=== PATIENT | male | born 1945 | race Caucasian/White ===

== ENCOUNTER 2017-02-09 17:26 | Observation (INO) | payer MEDICARE, BC ==
[2017-02-09 18:13] LABS: Bilirubin Negative (Negative); Blood, Urine Negative (Negative); Glucose, Urine (Dipstick) Negative (Negative); Ketone, Urine Negative (Negative); Nitrite Negative (Negative); Protein, Urine (Dipstick) Negative (Neg-Trace); Urobilinogen 0.2 mg/dL (0.2-1.0)
[2017-02-09 18:35] LABS: #Lymphocytes 1.4 thou/uL (1.20-3.40); #Monocytes 1.1 thou/uL (0.11-0.59); #Neutrophils 7.1 thou/uL (1.40-6.50); %Basophils 0.1 % (0.0-1.0); %Eosinophils 0.3 % (0.0-10.0); %Lymphocytes 14.3 % (21.0-51.0); %Monocytes 11.4 % (0.0-10.0); Hematocrit 41.7 % (42.0-52.0); Mean Platelet Volume 7.9 fL (7.4-10.4); Red Blood Cell (RBC) Count 4.65 mill/uL (4.70-6.10); White Blood Cell (WBC) Count 9.7 thou/uL (4.8-10.8)
[2017-02-09 18:57] LABS: ALT (SGPT) 13 U/L (8-55); AST (SGOT) 20 U/L (5-34); Alkaline Phosphatase 91 U/L (40-150); Anion Gap 17 mmol/L (10-20); BUN (Urea Nitrogen) 19 mg/dL (8.4-25.7); Bilirubin, Total 1.1 mg/dL (0.2-1.2); CK (CPK) 51 U/L (30-200); Calc. Creatinine Clearance 0 mL/min (70-130); Calcium 10.3 mg/dL (7.8-10.44); Carbon Dioxide 28 mmol/L (23-31); Chloride 95 mmol/L (98-107); Estimated GFR-MDRD 48; Globulin 3.1 g/dL (2.4-3.5); Protein, Total 7.2 g/dL (5.8-8.1)
[2017-02-09 19:01] LABS: Troponin I Less than 0.010 ng/mL (< 0.028)
--- NOTE | 2017-02-09 19:52 | RAD ---
UPRIGHT PORTABLE CHEST ONE VIEW: 02/09/17 HISTORY: 71-year-old male with history of injury following a fall. COMPARISON: 03/27/14. FINDINGS: Postop midline sternotomy. Monitor leads overlie the chest. Heart size is within normal limits. No c onfluent pneumonia, overt edema or pleural effusion. IMPRESSION: Stable appearing chest. No pneumothorax, pleural effusion or other significant acute process. POS: [facility]
--- NOTE | 2017-02-09 20:00 | CT ---
BRAIN CT WITHOUT IV CONTRAST: 02/09/17 HISTORY: 71-year-old male with altered mental status following a fall. Atrophy and chronic white matter ischemic change. No focal mass or midline shift. No intra or extra-a xial hemorrhage. IMPRESSION: Marked atrophy and chronic white matter ischemic change without mass, bleed, or other acute process. POS: [facility]
[2017-02-09] MEDS ORDERED: Ondansetron HCl/PF 4 MG/2 ML Vial IVP PRN (21:51)
[2017-02-09] MEDS ORDERED: Ondansetron ODT 4 MG TAB SL PRN (21:51)
[2017-02-09 22:37] VITALS: BMI 32.8
[2017-02-10] MEDS ORDERED: Dextrose 5% in Water 1,000 ML IV PRN (00:13)
[2017-02-10] MEDS ORDERED: Ondansetron HCl/PF 4 MG/2 ML Vial IVP PRN ×2 (00:13)
[2017-02-10] MEDS ORDERED: HumaLOG 300 UNITS/3 ML VIAL SC PRN ×2 (00:13)
[2017-02-10] MEDS ORDERED: Milk Of Magnesia 30 ML UDCUP PO PRN (00:13)
[2017-02-10] MEDS ORDERED: hydrALAZINE 20 MG/ML VIAL SLOW IVP PRN (00:13)
[2017-02-10] MEDS ORDERED: Dextrose 50% Abboject 50 ML SYRINGE SLOW IVP PRN (00:13)
[2017-02-10] MEDS ORDERED: Acetaminophen 325 MG TAB PO PRN (00:13)
[2017-02-10] MEDS ORDERED: Ondansetron ODT 4 MG TAB PO PRN ×2 (00:13)
[2017-02-10] MEDS ORDERED: Aspirin 325 mg Enteric Coated Tablet PO SCH ×2 (01:00→09:00)
--- NOTE | 2017-02-10 04:34 | HP ---
PRIMARY CARE PHYSICIAN: Dr. Almanza. CHIEF COMPLAINT: Altered mental status. HISTORY OF PRESENT ILLNESS: The history of present illness is taken primarily from the patient's wif e who is at the bedside as the patient only remembers part of what had happened earlier, but frank g to Mr. Platt's , he had gone into town and then came back from town and says that she noticed that he parked his car in a strange location and she says she heard the car door shut and then she h eard him call for help and apparently he had tripped. He says that he tripped over on a rock and fel l to the ground. She says that he was unable to get up initially, and when she went to check on him, he was saying stuff that did not make sense. She asked him where he was and what he was doing and aguila slater told that he had stuffed to deliver to their daughter which was not true. He was also saying other things that just did not make sense. She called an ambulance and by the time the ambulance arrived, he was better oriented. He knew the year, the date, etc., but then when he got to the ER, he seemed a little bit confused again. He also says that his legs were weak, but otherwise no other complaint s. The patient's said he had TIA years ago, but the symptoms were different, but she cannot rem ember exactly how those symptoms where at that time. He denies any other complaints, no headaches, n o dizziness, no feeling lightheaded. He says that he accidentally fell, he did not pass out or loss consciousness. There was no fever, no chills, etc., no chest pain or shortness of breath and right n ow, he feels about back to his baseline. It is also noted that he does have an extensive heart histo ry and vascular history. REVIEW OF SYSTEMS: Constitutional: No fevers, chills, no night sweats, no weight loss. HEENT: No headaches, no dizziness, no visual changes, no sore throat, rhinorrhea, neck pain, no adenopathy. PULMONARY: No hemoptysis, no cough, no wheezing. CARDIOVASCULAR: No chest pain, no shortness of breath, no PND, no orthopnea. GASTROINTESTINAL: No abdominal pain, no nausea, no vomiting, no change in bowels. GENITOURINARY: No urinary frequency, no hematuria, no hesitancy. NEUROLOGIC: No focal weakness, numbness, no seizures. PSYCHIATRIC: No symptoms of anxiety or depression. SKIN AND INTEGUMENT: No skin changes. No rash. NEUROLOGIC: As the history of present illness. In addition, which was previously mentioned. PAST MEDICAL HISTORY: Significant for coronary artery disease, hypertension, asthma, gout, diabetes mellitus type 2, chronic back pain, and peripheral vascular disease. PAST SURGICAL HISTORY: He recently had a revision of fem-pop bypass, has a history of previous fem-p op bypass, coronary artery bypass grafting, cholecystectomy, bilateral inguinal hernia repair, back s urgery x3, right knee surgery, and tonsillectomy. SOCIAL HISTORY: He is . He is a non-smoker, nondrinker. He wishes to be a FULL CODE. ALLERGIES: PENICILLIN and KEFLEX. FAMILY HISTORY: Significant for hypertension in his mother. CURRENT MEDICATIONS: Include Flomax 0.4 mg daily, simvastatin 20 mg daily, multivitamin once a day, metformin 1000 mg twice a day, Advil liquid gel p.r.n., DiaBeta 10 mg twice daily, gabapentin 600 mg twice a day, furosemide 80 mg daily, iron sulfate 325 mg twice a day, docusate 100 mg twice a day, Pl avix 75 mg daily, Zyrtec 10 mg daily, atenolol 25 mg twice a day, aspirin 81 mg daily, allopurinol 10 0 mg daily. PHYSICAL EXAMINATION: GENERAL: He is alert and oriented. He appears to be in no acute distress. VITAL SIGNS: Blood pressure was 122/76, heart rate 73, respiratory rate of 16, temperature is 98.3. HEENT: His pupils are equal, round, and reactive. Extraocular muscles are intact. Sclerae are anic teric. Throat, no erythema, no exudates. NECK: No adenopathy, no bruits. LUNGS: Clear. No wheezing, no rales. CARDIOVASCULAR: He has a normal S1 and S2. I did not appreciate an S3 or S4. No murmurs, clicks, o r rubs. ABDOMEN: Soft, nontender, nondistended. Positive for bowel sounds. No rebound or guarding. EXTREMITIES: There is no clubbing, cyanosis, no edema. NEUROLOGICALLY: His cranial nerves II through XII are grossly intact. Muscle strength 5/5 in both h is upper and lower extremities and essentially nonfocal. LABORATORY RESULTS: White blood cell count 9.7, hemoglobin 14.1, hematocrit 41.7, platelet count is 148. Sodium 136, potassium 4.1, chloride is 95, CO2 was 28, BUN of 19, creatinine 1.44, glucose is 1 19. Troponin is less than 0.010. Urinalysis is negative. X-RAY FINDINGS: On his EKG, it was sinus rhythm, the rate is 82. He has some Q-waves in V1 through V3, suggesting an old anterior infarct. CT of the brain showed some atrophy and chronic ischemic kevin nges, but no bleed or any acute infarct. ASSESSMENT AND PLAN: 1. This is a pleasant 71-year-old gentleman who presented with an episode of altered mental status, which appears to have resolved. He has a significant history of peripheral vascular disease as well as coronary artery disease which puts him at high risk of cerebrovascular disease as well. I suspect that the symptoms were in fact a transient ischemic attack. He will be placed in observation. We w ill get carotid Dopplers, echo, and an MRI. We will also monitor her on telemetry for signs of atria l fibrillation. He is on aspirin and as well as Plavix already. We can give him a dose of full stre ngth aspirin for tomorrow and then consider reducing the dose back to 81 mg following that. 2. For diabetes mellitus, we will hold his metformin and continue glyburide and place him on a slidi ng scale insulin. 3. Hypertension. Continue his usual medications for hypertension as well as a p.r.n. medication. 4. He will be placed on deep venous thrombosis and gastrointestinal prophylaxis as per and further r ecommendations will be based on the results of his tests.
[2017-02-10 04:58] LABS: Anion Gap 13 mmol/L (10-20); BUN (Urea Nitrogen) 19 mg/dL (8.4-25.7); Calc. Creatinine Clearance 68 mL/min (70-130); Calcium 9.9 mg/dL (7.8-10.44); Carbon Dioxide 28 mmol/L (23-31); Chloride 97 mmol/L (98-107); Cholesterol 111 mg/dl (< 200 Desired); Estimated GFR-MDRD 54; LDL Cholesterol, Calculated 42 mg/dL
[2017-02-10 05:04] LABS: #Eosinphils 0.1 thou/uL (0.0-0.7); #Lymphocytes 1.9 thou/uL (1.20-3.40); #Monocytes 1.2 thou/uL (0.11-0.59); #Neutrophils 5.3 thou/uL (1.40-6.50); %Basophils 0.3 % (0.0-1.0); %Eosinophils 0.7 % (0.0-10.0); %Lymphocytes 22.1 % (21.0-51.0); %Monocytes 14.5 % (0.0-10.0); Hematocrit 39.4 % (42.0-52.0); Mean Platelet Volume 8.3 fL (7.4-10.4); White Blood Cell (WBC) Count 8.5 thou/uL (4.8-10.8)
[2017-02-10] MEDS: glyBURIDE 5 MG TAB PO SCH ×2 (08:17→17:09)
[2017-02-10] MEDS: Ferrous Sulfate 325 MG TAB PO SCH ×2 (08:17→17:09)
[2017-02-10] MEDS ORDERED: Loratadine 10 MG TAB PO SCH (09:00)
[2017-02-10] MEDS ORDERED: Gabapentin 300 MG CAP PO SCH (09:00)
[2017-02-10] MEDS ORDERED: Famotidine 20 MG TAB PO SCH (09:00)
[2017-02-10] MEDS ORDERED: Multivit, Therapeutic 1 TAB PO SCH (09:00)
[2017-02-10] MEDS ORDERED: Docusate 100 MG CAP PO SCH (09:00)
[2017-02-10] MEDS ORDERED: Clopidogrel Bisulfate 75 MG TAB PO SCH (09:00)
[2017-02-10] MEDS ORDERED: Tamsulosin HCl 0.4 MG CAP PO SCH (09:00)
[2017-02-10] MEDS ORDERED: Atenolol 25 MG TAB PO SCH (09:00)
[2017-02-10] MEDS ORDERED: Allopurinol 100 MG TAB PO SCH (09:00)
[2017-02-10] MEDS ORDERED: Enoxaparin Sodium 30 MG/0.3 ML SYRINGE SC SCH (09:00)
--- NOTE | 2017-02-10 12:40 | PDOC.PN ---
- Subjective Encounter Start Date: 02/10/17 Encounter Start Time: 07:20 Pt sen for followup re: acute encephalopathy. Denies chest pain, shortness of breath, fevers or chills. - Objective Resuscitation Status: Resuscitation Status FULL:Full Resuscitation MAR Reviewed: Yes Vital Signs & Weight: Vital Signs (12 hours) Temp Pulse Resp BP Pulse Ox 02/10/17 12:00 98.1 F 75 20 140/82 99 02/10/17 08:15 97.9 F 71 20 02/10/17 08:00 97.9 F 71 20 142/79 H 96 02/10/17 04:17 97.9 F 66 18 147/81 H 96 Weight Weight 209 lb 6.4 oz I&O: 02/09/17 02/10/17 02/11/17 06:59 06:59 06:59 Intake Total 240 Output Total 475 Balance -235 Result Diagrams: 02/10/17 04:05 02/10/17 04:05 Additional Labs: Accuchecks 02/10/17 02/10/17 10:51 05:38 POC Glucose 229 H 130 H EKG Reviewed by me: Yes (Tele: NSR) Phys Exam - Physical Examination Constitutional: NAD HEENT: moist MMs Neck: supple Respiratory: clear to auscultation bilateral Cardiovascular: RRR Gastrointestinal: soft Musculoskeletal: pulses present Neurological: non-focal, moves all 4 limbs Psychiatric: normal affect, A&O x 3 Skin: no rash Dx/Plan (1) Acute encephalopathy Code(s): G93.40 - ENCEPHALOPATHY, UNSPECIFIED Status: Acute (2) DM2 (diabetes mellitus, type 2) Status: Chronic (3) HTN (hypertension) Code(s): I10 - ESSENTIAL (PRIMARY) HYPERTENSION Status: Chronic (4) PVD (peripheral vascular disease) Code(s): I73.9 - PERIPHERAL VASCULAR DISEASE, UNSPECIFIED Status: Chronic - Plan PT/OT, out of bed/ambulate * . Acute encephalopathy improved. Continue accuchecks, insulin sliding scale. Monitor vital signs, titrate antihypertensives as needed. Review of Systems - Review of Systems Respiratory: negative: Cough, Dry, Shortness of Breath, Hemoptysis, SOB with Excertion, Pleuritic Pain, Sputum, Wheezing Cardiovascular: negative: chest pain, palpitations, orthopnea, paroxysmal nocturnal dyspnea, edema, light headedness Neurological: negative: Weakness, Numbness, Incoordination, Change in Speech, Confusion, Seizures - Medications/Allergies Allergies/Adverse Reactions: Allergies Allergy/AdvReac Type Severity Reaction Status Date / Time adhesive Allergy BLISTERS Verified 05/19/16 12:01 cephalexin monohydrate Allergy RASH,FLUSHI Verified 05/19/16 12:01 [From Keflex] NG Penicillins Allergy Nausea Verified 05/19/16 12:01 hydrocodone AdvReac Nausea Verified 05/19/16 12:01 Medications: Current Medications Acetaminophen (Tylenol) 650 mg PO Q4H PRN PRN Reason: Headache/Fever or Pain Allopurinol (Zyloprim) 100 mg PO DAILY [facility] Last Admin: 02/10/17 08:17 Dose: 100 mg Aspirin (Ecotrin) 325 mg PO DAILY [facility] Last Admin: 02/10/17 08:17 Dose: 325 mg Atenolol (Tenormin) 25 mg PO BID [facility] Last Admin: 02/10/17 08:18 Dose: 25 mg Atorvastatin Calcium (Lipitor) 20 mg PO [facility] Clopidogrel Bisulfate (Plavix) 75 mg PO DAILY [facility] Last Admin: 02/10/17 08:18 Dose: 75 mg Dextrose/Water (Dextrose 50%) 25 gm SLOW IVP PRN PRN PRN Reason: Hypoglycemia Docusate Sodium (Colace) 100 mg PO BID [facility] Last Admin: 02/10/17 08:18 Dose: 100 mg Enoxaparin Sodium (Lovenox) 30 mg SC 0900 [facility] Last Admin: 02/10/17 08:20 Dose: 30 mg Famotidine (Pepcid) 20 mg PO DAILY [facility] Last Admin: 02/10/17 08:19 Dose: 20 mg [facility] Admin: 02/10/17 08:17 Dose: 325 mg Gabapentin (Neurontin) 600 mg PO BID [facility] Last Admin: 02/10/17 08:19 Dose: 600 mg Glucagon (Glucagon) 1 mg IM PRN PRN PRN Reason: Hypoglycemia [facility]ab[facility]) [facility] Last Admin: 02/10/17 08:17 Dose: 10 mg Hydralazine HCl (Apresoline) 10 mg SLOW IVP Q4H PRN PRN Reason: BP > 220/110 Dextrose/Water (D5w) 1,000 mls @ 0 mls/hr IV .Q0M PRN; As Directed PRN Reason: Hypoglycemia Insulin Human Lispro (Humalog) 0 units SC .MILD SLIDING SCALE PRN PRN Reason: Mild Correctional Scale Insulin Human Lispro (Humalog) 0 units SC .BEDTIME SLIDING SC PRN PRN Reason: Bedtime Correctional Scale Loratadine (Claritin) 10 mg PO DAILY [facility] Last Admin: 02/10/17 08:19 Dose: 10 mg Magnesium Hydroxide (Milk Of Magnesium) 30 ml PO DAILYPRN PRN PRN Reason: Constipation Multivitamins (Theragran) 1 tab PO DAILY [facility] Last Admin: 02/10/17 08:19 Dose: 1 tab Ondansetron HCl (Zofran Odt) 4 mg PO Q6H PRN PRN Reason: Nausea/Vomiting Ondansetron HCl (Zofran) 4 mg IVP Q6H PRN PRN Reason: Nausea/Vomiting Tamsulosin HCl (Flomax) 0.4 mg PO DAILY [facility] Last Admin: 02/10/17 08:19 Dose: 0.4 mg
--- NOTE | 2017-02-10 13:22 | MRI ---
MRI BRAIN WITHOUT CONTRAST: Date: 02/10/17 HISTORY: TIA versus a stroke. COMPARISON: CT brain from prior day. FINDINGS: On the diffusion-weighted imaging sequence, there are no areas of diffusion restriction to suggest ac [place] infarction. This is confirmed on the ADC map. On the susceptibility weighted imaging sequence, there are no abnormal areas of hemorrhage. There is moderate to severe microvascular ischemic changes of the subcortical and deep white matter. No midline shift. No mass effect. Mild atrophy. Flow-voids are maintained at the [place] of [place]. IMPRESSION: 1. No acute infarction or hemorrhage. 2. Extensive microvascular ischemic changes. POS: [facility]
--- NOTE | 2017-02-10 13:42 | ULT ---
ULTRASOUND CAROTID DOPPLER: Date: 02/10/17 HISTORY: TIA. COMPARISON: None. TECHNIQUE: Real-time Julien scale, color Doppler, and spectral analysis of the extracranial carotid arteries was p erformed with the linear transducer. FINDINGS: Moderate atherosclerotic plaque of both common carotid arteries, as well as the carotid bulbs and pro ximal internal carotid arteries. No elevated peak systolic velocities of the internal carotid arterie s to suggest a hemodynamically significant stenosis. Antegrade flow within both vertebral arteries. IMPRESSION: 1. No hemodynamically significant stenosis within the internal carotid arteries. 2. Extensive atherosclerotic plaque. POS: [facility]
[2017-02-10 16:06] VITALS: BP 144/92; TEMP 97.4
[2017-02-10] MEDS ORDERED: Potassium Chloride 20 MEQ TAB PO SCH (17:00)
[2017-02-10] MEDS ORDERED: Atorvastatin Calcium 20 MG TAB PO SCH (21:00)
--- NOTE | 2017-02-10 23:10 | DIS ---
DATE OF ADMISSION: 02/09/2017 DATE OF DISCHARGE: 02/10/2017 PRIMARY CARE PHYSICIAN: Holland Almanza M.D. DISCHARGE DIAGNOSIS: Acute encephalopathy, resolved. CONDITION OF PATIENT AT THE TIME OF DISCHARGE: Stable. I assessed Mr. Platt on the day of discharge. Please refer to my daily hospitalist's progress note for further information. DISCHARGE MEDICATIONS: No changes were made to his preadmission home medications as dictated on hist ory and physical note from 02/09/2017. In particular, he was advised to continue aspirin, Plavix, an d simvastatin. INVESTIGATIONS DURING THIS HOSPITALIZATION: 1. CT scan of the brain, noncontrast on 02/09/2017, which showed marked atrophy and chronic white ma tter ischemic change without mass, bleed or other acute process. 2. A 2D echocardiogram: Unable to obtain ejection fraction due to poor images. He had moderately d ilated left atrium, moderately increased left ventricular size, impaired relaxation compatible with d iastolic dysfunction and mild tricuspid regurgitation. The radiologist recommends a repeat exam. 3. MRI of the brain on 02/10/2017, which did not reveal any acute infarction or hemorrhage. The pat ient had extensive microvascular ischemic changes. 4. Carotid Dopplers on 02/10/2017, which showed extensive atherosclerotic plaque, no hemodynamically significant stenosis within the internal carotid arteries. LABORATORY INVESTIGATIONS: On the day of discharge, Mr. Platt has a white count of 8500, hemoglobi n 13.3, platelet count 140,000. Sodium 135, potassium 3.4, which is being replaced, creatinine 1.30 and blood urea nitrogen 19. During this hospitalization, he had fasting lipid profile showing trigly cerides 148, cholesterol 111, LDL cholesterol 42, and HDL cholesterol 39. HOSPITAL COURSE: Mr. Platt is a pleasant 71-year-old gentleman who was admitted to [facility] on 02/09/2017 for an episode of acute encephalopathy. He was also found to have a cute renal failure, with a creatinine of 1.44. He improved during the hospitalization. He did not h ave further episodes of confusion. He had investigations as described above, which did not reveal an y stroke. He is advised to resume his home medications and to follow up with his primary care provid er in 3 to 5 days. He also had urinalysis during this hospitalization, which was normal. Many thanks for allowing me to participate in your patient's care. Please feel free to contact me wi th any questions or concerns. DISCHARGE DESTINATION: Home.
== END 2017-02-10 17:35 | disposition home or self-care (01) ==
LOC: ERS 17:26 → 2SE 20:14
PROVIDERS: ADMIT Internal Medicine Infectious Disease; ATTEND Internal Medicine Infectious Disease
DX: G93.40 Encephalopathy, unspecified (principal); I10 Essential (primary) hypertension; I25.10 Atherosclerotic heart disease of native coronary artery without angina pectoris; J45.909 Unspecified asthma, uncomplicated; E11.51 Type 2 diabetes mellitus with diabetic peripheral angiopathy without gangrene; Z88.1 Allergy status to other antibiotic agents; Z88.0 Allergy status to penicillin; Z88.5 Allergy status to narcotic agent; Z91.048 Other nonmedicinal substance allergy status; Z79.84 Long term (current) use of oral hypoglycemic drugs; Z79.82 Long term (current) use of aspirin; Z79.899 Other long term (current) drug therapy; Z90.49 Acquired absence of other specified parts of digestive tract; Z95.1 Presence of aortocoronary bypass graft; Z98.890 Other specified postprocedural states; Z82.49 Family history of ischemic heart disease and other diseases of the circulatory system
CPT/HCPCS: 70450; 70551; 71010; 80048; 80053; 80061; 81003; 82550; 82553; 82962; 84484; 85025 ×2; 87804 ×2; 93005; 93306; 93880; 96372; 97139 ×2; 97535; 99285; G0378; G8978; G8979; G8980; G8987; G8988; 36415; 36416; J1650

== ENCOUNTER 2017-11-22 08:51 | Outpatient (CLI) | payer MEDICARE, BC ==
[2017-11-22 10:27] LABS: Hemoglobin 11.8 g/dL (14.0-18.0); Mean Corpuscular HGB CONC 32.4 g/dL (32.0-36.0); Mean Corpuscular Hemoglobin 28.1 pg (27.0-31.0); Mean Corpuscular Volume 86.5 fL (78.0-98.0); Mean Platelet Volume 7.2 fL (7.4-10.4); Platelet Count 210 thou/uL (130-400); RBC Distribution Width 16.1 % (11.5-14.5); White Blood Cell (WBC) Count 7.8 thou/uL (4.8-10.8)
[2017-11-22 10:50] LABS: Anion Gap 12 mmol/L (10-20); BUN (Urea Nitrogen) 18 mg/dL (8.4-25.7); Calc. Creatinine Clearance 0 mL/min (70-130); Calcium 9.8 mg/dL (7.8-10.44); Carbon Dioxide 22 mmol/L (23-31); Chloride 104 mmol/L (98-107); Estimated GFR-MDRD 50; Glucose 292 mg/dL (83-110); Potassium 4.2 mmol/L (3.5-5.1); Sodium 134 mmol/L (136-145)
--- NOTE | 2017-11-25 20:47 | EKG ---
Test Reason : Blood Pressure : / mmHG Vent. Rate : 072 BPM Atrial Rate : 072 BPM P-R Int : 180 ms QRS Dur : 098 ms QT Int : 372 ms P-R-T Axes : 078 169 044 degrees QTc Int : 407 ms Normal sinus rhythm Indeterminate axis Anteroseptal infarct (cited on or before 18-MAR-2014) Abnormal ECG When compared with ECG of 09-FEB-2017 18:15, QRS axis Shifted right Confirmed by Pranav CONNORS ([id number]) on 11/25/2017 8:47:42 PM Referred By: DANIELLE Confirmed By:Pranav CONNORS
== END 2017-11-22 08:52 | disposition home or self-care (01) ==
LOC: LABBT 08:51
PROVIDERS: ATTEND Thoracic Surgery (Cardiothoracic Vascular Surgery)
DX: Z01.818 Encounter for other preprocedural examination (principal)
CPT/HCPCS: 80048; 85027; 93005; 93010

== ENCOUNTER → 2017-11-23 | Day surgery (SDC) | payer MEDICARE, BC ==
[2017-11-22 09:10] VITALS: BMI 29.7
[~2017-11-23] MED LIST: Fentanyl 100 MCG/2 ML VIAL ONE; Iopamidol 370 76% 50 ML VIAL FS ONE; Lidocaine 1% (PF) 30 ML VIAL ONE
--- NOTE | 2017-11-23 08:12 | OP ---
DATE OF PROCEDURE: 11/23/2017 SURGEON: Dr. Holland López PREOPERATIVE DIAGNOSIS: Nonhealing wound right foot, peripheral artery disease. PROCEDURE: Aortogram, bilateral lower extremity runoff. CONTRAST: 48 mL. FLUOROSCOPY: 8.9 minutes. PROCEDURE IN DETAIL: After prepping and draping the right groin was accessed with a Contra catheter under ultrasound guidance and then this catheter after placement had a 0.035 wire placed and a 5-Fren ch dilator and sheath. Following this, runoff was performed of the left lower extremity. Following this, a Contra catheter was advanced into the aorta where injections were completed and then a rim ca theter was used to cross the iliac bifurcation with a wire and then a 4-[place] angled taper was advan dereck and runoff of the right leg was obtained. Following this, the sheath was removed. FINDINGS: On the left leg, the patient had a heavily calcified common femoral artery, but that was w idely patent. The profunda was widely patent and off of the profunda vessel the saphenous vein graft came off and was free of disease. At the distal anastomosis there was about a 50% narrowing and the n runoff was primarily via the anterior tibial as well as the posterior tibial and peroneal being pat ent. The aorta and iliac segments were essentially free of significant disease, although there was i ntraluminal calcification in the left external iliac artery. Runoff on the right leg demonstrated at least 75% stenosis of the distal common femoral artery with 90% stenosis at the origin of the superf icial femoral artery and about 50% profunda stenosis. Superficial femoral artery then had a long 75- 80% stenosis and near the adductor canal. The popliteal artery was patent as best could be determine d in AP and lateral projections with the artificial knee. Runoff was primarily through a diseased po sterior tibial with the peroneal being patent and only for a short distance. The posterior tibial wa s patent to the ankle, the anterior tibial did not appreciably visualize.
--- NOTE | 2017-11-23 13:16 | HP ---
HISTORY OF PRESENT ILLNESS: This is a 72-year-old gentleman being electively admitted for surgery on 11/26/2017. He has had multiple peripheral interventions involving his left and right leg. About 1 month ago, he rubbed a sore on the medial aspect of his right first metatarsal head and then develop ed an infection and was treated with antibiotics by Dr. Almanza. The erythema resolved; however, the w ound has failed to heal. He had a previous superficial femoral artery atherectomy and angioplasty ab out 2015 on the right leg and then about one month later, had a right knee replacement. He underwent angiography demonstrating severe right distal common femoral artery stenosis with a 90% stenosis at the origin of the superficial femoral artery and then about a 75% stenosis at the adductor canal. He then had nonvisualization of his anterior tibial and diseased posterior tibial and peroneal arteries . Heavily calcified femoral system. PAST MEDICAL HISTORY: Significant for coronary artery disease, hypertension, arthritis, asthma, gout , diabetes mellitus, and mild carotid artery disease. PAST SURGICAL HISTORY: Tonsillectomy, right knee replacement, back surgery x3, cholecystectomy, bila teral inguinal hernias, coronary artery bypass grafting x4 in 2014, diagnostic angiography in 02/2015 , left fem-pop bypass with saphenous vein in 02/2015, PERFORATOR LOADER in right leg in 04/2015, revision of left f em-pop graft in 07/2015, repeat revision of left fem-pop graft in 05/2016. SOCIAL HISTORY: The patient is a nonsmoker, has not smoked for greater than 10 years. He is . ALLERGIES: PENICILLIN, KEFLEX, HYDROCODONE, which causes vomiting and TRAMADOL which causes him to b e goofy. MEDICATIONS: Include Plavix 75 a day, atenolol 25 b.i.d., metformin 1000 b.i.d., allopurinol 100 mg daily, simvastatin 20 mg daily, Lasix 40 mg tablets 2 tablets daily, gabapentin 600 b.i.d., Flomax 0. 4 a day, glyburide 10 mg b.i.d., aspirin 81 a day, Septra-DS b.i.d. PHYSICAL EXAMINATION: GENERAL: Alert, cooperative gentleman, looking his stated age. VITAL SIGNS: Blood pressure 149/74, height 6 feet, weight 198. NECK: No carotid bruits. CARDIAC: Regular rate and rhythm. No murmurs. LUNGS: Clear to auscultation. EXTREMITIES: Mild peripheral edema, more so in the left lower extremity than the right lower extremi ty. He has palpable femoral pulses bilaterally and a left dorsalis pedis pulse. His right posterior tibial pulse is high pitched and his left dorsalis pedis is at least biphasic. Pressures are greate r than 200. PLAN: At this time is for common femoral endarterectomy extending onto the orifice of the profunda a nd superficial femoral arteries and possible stenting of the distal superficial femoral artery with a 6 x 100 mm stent. Informed consent has been obtained.
== END ==
LOC: SDC 05:55
PROVIDERS: ATTEND Thoracic Surgery (Cardiothoracic Vascular Surgery)
PROC: B41D1ZZ Fluoroscopy of Aorta and Bilateral Lower Extremity Arteries using Low Osmolar Contrast (ICD-10-PCS; principal; 2017-11-23)
DX: E11.51 Type 2 diabetes mellitus with diabetic peripheral angiopathy without gangrene (principal); I70.235 Atherosclerosis of native arteries of right leg with ulceration of other part of foot; E11.621 Type 2 diabetes mellitus with foot ulcer; L97.519 Non-pressure chronic ulcer of other part of right foot with unspecified severity; I10 Essential (primary) hypertension; J45.909 Unspecified asthma, uncomplicated; M19.90 Unspecified osteoarthritis, unspecified site; M10.9 Gout, unspecified; G89.29 Other chronic pain; M54.9 Dorsalgia, unspecified; I25.10 Atherosclerotic heart disease of native coronary artery without angina pectoris; Z87.891 Personal history of nicotine dependence; Z79.02 Long term (current) use of antithrombotics/antiplatelets; Z79.82 Long term (current) use of aspirin; Z79.84 Long term (current) use of oral hypoglycemic drugs; Z79.899 Other long term (current) drug therapy; Z88.0 Allergy status to penicillin; Z88.5 Allergy status to narcotic agent; Z91.048 Other nonmedicinal substance allergy status; Z95.1 Presence of aortocoronary bypass graft; Z95.820 Peripheral vascular angioplasty status with implants and grafts
CPT/HCPCS: 36246; 75630; 75716; 76942; 82962; C1725; C1769; C1887; 36416; J1644; J2001; J3010

== ENCOUNTER 2017-11-26 05:45 | Inpatient (IN) | payer MEDICARE, BC ==
[2017-11-23 15:52] VITALS: BMI 29.7
[2017-11-26] MEDS ORDERED: Levofloxacin 500 mg/D5W 100 ml Premix Bag ONE (06:25)
[2017-11-26] MEDS ORDERED: Clindamycin/D5W 900 mg/50 ml Premix Bag ONE (06:25)
[2017-11-26] MEDS ORDERED: Heparin 5,000 UNITS/ML VIAL ONE ×2 (06:37→09:52)
[2017-11-26] MEDS ORDERED: Protamine Sulfate 50 MG/5 ML VIAL ONE (06:37)
[2017-11-26] MEDS ORDERED: Iothalamate Meglumine 60% 50 ML VIAL FS ONE (06:37)
[2017-11-26] MEDS ORDERED: Fentanyl 100 MCG/2 ML VIAL ONE ×2 (07:02→11:34)
[2017-11-26] MEDS ORDERED: Phenylephrine HCL 10 MG/ML VIAL ONE (07:30)
[2017-11-26] MEDS ORDERED: Promethazine HCl 25 MG/ML VIAL IM PRN (11:26)
[2017-11-26] MEDS ORDERED: Promethazine HCl 25 MG/ML VIAL SLOW IVP PRN (11:26)
[2017-11-26] MEDS ORDERED: Ondansetron HCl/PF 4 MG/2 ML Vial IVP PRN (11:26)
[2017-11-26] MEDS ORDERED: Promethazine HCl 25 MG/ML VIAL ONE (11:55)
[2017-11-26] MEDS ORDERED: Lidocaine 1% PF 5 ML VIAL ONE (12:29)
[2017-11-26] MEDS ORDERED: Ondansetron HCl/PF 4 MG/2 ML Vial ONE (12:29)
[2017-11-26] MEDS ORDERED: ePHEDrine/0.9% NaCl/PF SYRINGE 50 mg/10 ml ONE (12:29)
[2017-11-26] MEDS ORDERED: Heparin 10,000 UNITS/ 10 ML VIAL ONE (12:29)
[2017-11-26] MEDS ORDERED: PROPOFOL 200 MG/20 ML VIAL ONE (12:29)
[2017-11-26] MEDS ORDERED: PHENYLEPHRINE-NS 100 MCG/ML 10 ML SYRINGE ONE (12:29)
[2017-11-26] MEDS ORDERED: Glycopyrrolate 0.2 MG/ML 5 ML SYRINGE ONE (12:29)
--- NOTE | 2017-11-26 12:33 | OP ---
DATE OF PROCEDURE: 11/26/2017 PREOPERATIVE DIAGNOSIS: Nonhealing wound, right foot. PROCEDURE: Extended right common, profunda and superficial femoral endarterectomy with vein patch an gioplasty and angiography of the right lower extremity with SP[employer]ING [employer] SALES MANAGER, right superficial femoral artery wit h 4 mm and then 5 mm balloon. SURGEON: Holland López M.D. ANESTHESIA: General. ESTIMATED BLOOD LOSS: 150 mL. PROCEDURE IN DETAIL: After adequate anesthesia had been obtained, the patient was prepped and draped . Incision was made in the right groin extending from the inguinal ligament down to 3 cm from the or igin of the superficial femoral artery. Following this, the common femoral artery was palpably soft just caudal to the inguinal ligament. Profunda main branch and its bifurcation were dissected out. The patient was given 10,000 units of heparin, clamps were applied and arteriotomy performed through the common femoral artery. There was dense calcification and after incising from the origin of the s uperficial femoral artery to within about 2 cm of the inguinal ligament endarterectomy was begun. Th e densely calcified plaque primarily involved the common femoral artery and the origin of the profund a femoral artery and this was all removed. The superficial femoral artery was essentially occluded w ith only a tiny lumen ultimately found posteriorly. The plaque was removed from the superficial femo ral artery and there was satisfactory tapering proximal to the clamp with anterior plaque in the post erior lumen. A remnant of saphenous vein left from previous coronary bypass surgery was then opened and used as a vein patch. Following completion of this suture line and irrigating the area thoroughl y, flow was restored down the profunda and then superficial femoral artery. Following this, a needle was used to puncture the vein patch and a wire was then passed down through the superficial femoral into the popliteal artery. Angiography was performed demonstrating about an 80% stenosis in the supe rficial femoral artery at about the adductor canal. A 4 x 80 balloon was then inflated and following this, a 5 x 80 balloon was inflated. Repeat angiograms demonstrated improvement to about a 50% sten osis. Due to the rather diffuse nature of his atherosclerosis it was elected not to place a stent at this time. Following this, the sheath was removed and the puncture site secured with a Prolene sutu re. Heparin was partially reversed with protamine and the wound was then closed in layers. A vacuum dressing was then applied on the groin. The patient is to be taken to the recovery room in guarded condition.
[2017-11-26] MEDS ORDERED: Acetaminophen 325 MG TAB PO PRN (13:31)
[2017-11-26] MEDS ORDERED: Dextrose 50% Abboject 50 ML SYRINGE SLOW IVP PRN (13:31)
[2017-11-26] MEDS ORDERED: Dextrose 5% in Water 1,000 ML IV PRN (13:31)
[2017-11-26] MEDS ORDERED: Insulin Regular 300 UNITS/3 ML VIAL SC PRN (13:31)
[2017-11-26] MEDS ORDERED: hydrALAZINE 20 MG/ML VIAL SLOW IVP PRN (13:31)
[2017-11-26] MEDS ORDERED: Sodium Chloride 0.9% 1,000 ML IV SCH (13:31)
[2017-11-26] MEDS: Clindamycin/D5W 900 MG in Premix Bag 1 BAG IVPB SCH ×2 (15:36→20:36)
[2017-11-26] MEDS: Fentanyl 100 MCG/2 ML VIAL SLOW IVP PRN ×3 (15:48→23:44)
[2017-11-27] MEDS: Clindamycin/D5W 900 MG in Premix Bag 1 BAG IVPB SCH ×2 (03:57→10:00)
[2017-11-27] MEDS: Fentanyl 100 MCG/2 ML VIAL SLOW IVP PRN (04:33)
[2017-11-27 05:57] LABS: #Eosinphils 0.1 thou/uL (0.0-0.7); #Lymphocytes 1.2 thou/uL (1.20-3.40); #Monocytes 0.7 thou/uL (0.11-0.59); #Neutrophils 5.3 thou/uL (1.40-6.50); %Basophils 0.2 % (0.0-1.0); %Eosinophils 1.7 % (0.0-10.0); %Lymphocytes 15.9 % (21.0-51.0); %Monocytes 9.5 % (0.0-10.0); %Neutrophils 72.6 % (42.0-75.0); Hemoglobin 10.2 g/dL (14.0-18.0); Mean Corpuscular HGB CONC 33.3 g/dL (32.0-36.0); Mean Corpuscular Hemoglobin 28.8 pg (27.0-31.0); Mean Corpuscular Volume 86.6 fL (78.0-98.0); Mean Platelet Volume 7.7 fL (7.4-10.4); Platelet Count 152 thou/uL (130-400); RBC Distribution Width 16.5 % (11.5-14.5); Red Blood Cell (RBC) Count 3.54 mill/uL (4.70-6.10); White Blood Cell (WBC) Count 7.3 thou/uL (4.8-10.8)
[2017-11-27 06:13] LABS: Anion Gap 11 mmol/L (10-20); BUN (Urea Nitrogen) 9 mg/dL (8.4-25.7); Calc. Creatinine Clearance 94 mL/min (70-130); Calcium 8.9 mg/dL (7.8-10.44); Carbon Dioxide 22 mmol/L (23-31); Chloride 107 mmol/L (98-107); Estimated GFR-MDRD 86; Glucose 140 mg/dL (83-110); Potassium 4.1 mmol/L (3.5-5.1); Sodium 136 mmol/L (136-145)
[2017-11-27] MEDS ORDERED: Promethazine HCl 25 MG/ML VIAL SLOW IVP PRN (06:34)
[2017-11-27] MEDS ORDERED: Furosemide 20 MG TAB PO SCH (09:00)
[2017-11-27] MEDS: metFORMIN 500 MG TAB PO SCH ×2 (09:52→16:30)
[2017-11-27] MEDS: Clopidogrel Bisulfate 75 MG TAB PO SCH (09:52)
[2017-11-27] MEDS: Tamsulosin HCl 0.4 MG CAP PO SCH (09:52)
[2017-11-27] MEDS: Gabapentin 300 MG CAP PO SCH ×3 (09:54→21:13)
[2017-11-27] MEDS: glyBURIDE 5 MG TAB PO SCH (09:56)
[2017-11-27] MEDS: Morphine 4 MG/ML VIAL SLOW IVP PRN ×2 (11:30→16:31)
[2017-11-27] MEDS: Acetaminophen/Codeine 30-300mg Tablet PO PRN (14:06)
--- NOTE | 2017-11-27 18:01 | MRI ---
MRI OF RIGHT FOOT PERFORMED WITH AND WITHOUT CONTRAST ENHANCEMENT: Date: 11/27/17 HISTORY: Wound on medial side of right great toe, concern for infection. FINDINGS: There is decreased T1 and increased T2 signal change involving the distal phalanx of the great toe an d the distal half of the proximal phalanx with what appear to be some bony destructive changes or pos sibly a pathologic fracture of the distal aspect of the proximal phalanx. Increased T2 signal change is seen. This is directly adjacent to what appears to be an open wound with a sinus-like tract extend ing from the medial side of the great toe to the level of the interphalangeal joint which has fluid w ithin it. The first metatarsal head is normal in signal change. The second toe is also unremarkable. The remain nito of the metatarsals are normal in appearance. IMPRESSION: Findings compatible with osteomyelitis of the proximal and distal phalanx of the great toe. No involv ement is seen of the first metatarsal. POS: [facility]
[2017-11-28 05:53] LABS: #Eosinphils 0.2 thou/uL (0.0-0.7); #Lymphocytes 1.3 thou/uL (1.20-3.40); #Monocytes 0.9 thou/uL (0.11-0.59); #Neutrophils 5.1 thou/uL (1.40-6.50); %Basophils 0.4 % (0.0-1.0); %Eosinophils 2.3 % (0.0-10.0); %Lymphocytes 17.5 % (21.0-51.0); %Monocytes 11.6 % (0.0-10.0); %Neutrophils 68.2 % (42.0-75.0); Hemoglobin 10.7 g/dL (14.0-18.0); Mean Corpuscular HGB CONC 32.9 g/dL (32.0-36.0); Mean Corpuscular Hemoglobin 28.3 pg (27.0-31.0); Mean Corpuscular Volume 86.1 fL (78.0-98.0); Mean Platelet Volume 7.3 fL (7.4-10.4); Platelet Count 137 thou/uL (130-400); RBC Distribution Width 16.7 % (11.5-14.5); Red Blood Cell (RBC) Count 3.77 mill/uL (4.70-6.10); White Blood Cell (WBC) Count 7.5 thou/uL (4.8-10.8)
[2017-11-28 06:14] LABS: Anion Gap 13 mmol/L (10-20); BUN (Urea Nitrogen) 10 mg/dL (8.4-25.7); Calc. Creatinine Clearance 85 mL/min (70-130); Calcium 9.2 mg/dL (7.8-10.44); Carbon Dioxide 22 mmol/L (23-31); Chloride 104 mmol/L (98-107); Estimated GFR-MDRD 77; Glucose 115 mg/dL (83-110); Potassium 3.8 mmol/L (3.5-5.1); Sodium 135 mmol/L (136-145)
[2017-11-28] MEDS: Tamsulosin HCl 0.4 MG CAP PO SCH (08:48)
[2017-11-28] MEDS: metFORMIN 500 MG TAB PO SCH ×2 (08:48→16:01)
[2017-11-28] MEDS: Clopidogrel Bisulfate 75 MG TAB PO SCH (08:48)
[2017-11-28] MEDS: Gabapentin 300 MG CAP PO SCH ×3 (08:48→20:28)
[2017-11-28] MEDS: glyBURIDE 5 MG TAB PO SCH (08:49)
[2017-11-28] MEDS: Acetaminophen/Codeine 30-300mg Tablet PO PRN ×3 (09:42→23:04)
[2017-11-28] MEDS: Ondansetron HCl/PF 4 MG/2 ML Vial IVP PRN ×2 (09:45→23:10)
--- NOTE | 2017-11-28 18:06 | RAD ---
RIGHT FOOT THREE VIEWS: 11/28/17 HISTORY: 72-year-old male with history of osteomyelitis right great toe with soft tissue swelling and pain. COMPARISON: 11/27/17 MRI exam. There is some type of bandage material which overlies the foot which somewhat obscures underlying bon y detail. There is soft tissue swelling of the great toe with destructive changes of the proximal an d distal phalanges of the great toe with some fragmentation of the distal phalanx as well as evidence for septic arthritis with some destructive changes of the interphalangeal joint of the great toe. Th ere are some scattered bone demineralization and degenerative changes including the first metatarsoph alangeal joint. IMPRESSION: Extensive destructive changes of the proximal and distal phalanges of the great toe and interphalange al joint, evidence for osteomyelitis and septic arthritis. POS: [facility]
--- NOTE | 2017-11-28 18:57 | CON ---
DATE OF CONSULTATION: 11/28/2017 REASON FOR CONSULTATION: Right first toe ulcer/osteomyelitis. HISTORY OF PRESENT ILLNESS: A 72-year-old with history of coronary artery disease, peripheral vascul ar disease, type 2 diabetes, who has had a chronic ulcer in the medial aspect of the distal right lourdes lux skin. This has been associated with intermittent drainage. The patient had prior interventions in the peripheral vasculature on both lower extremities and has been given oral antimicrobial therapy and because of the refractoriness of the process, he underwent repeat evaluation and had another pro cedure done with endarterectomy and SFA balloon angioplasty. An MRI has been completed off the right foot and it showed findings consistent with bony destructive changes or possibly a pathologic fractu re distal aspect of the proximal phalanx. Since there was a sinus tract, likely extending from the m edial side of the great toe to the level of the interphalangeal joint, the concern with infection is a significant. REVIEW OF SYSTEMS: No headaches, visual symptoms, sore throat, odynophagia, dysphagia, no dyspnea or chest pain, no abdominal pain or diarrhea, no genitourinary symptoms. PAST MEDICAL HISTORY: Type 2 diabetes, peripheral vascular disease, coronary artery disease, hyperte nsion, asthma and gout. PAST SURGICAL HISTORY: The revascularization procedures including fem-pop bypass, coronary artery by pass graft, cholecystectomy, inguinal repair and the recent revascularization. SOCIAL HISTORY: , lives in about 15 minutes from here. Never a smoker. ALLERGIES: PENICILLIN, actually not likely a true allergy, mostly during childhood and he does not r emember exactly the type. FAMILY HISTORY: Hypertension. CURRENT MEDICATIONS: Tylenol, DuoNeb, aspirin, Plavix, dextrose, Neurontin, glucagon, DiaBeta, Apres oline, insulin, Glucophage, Zofran, Phenergan, Flomax. PHYSICAL EXAMINATION: VITAL SIGNS: T-max 98.4 and all other vital signs are normal. O2 sat 100% room air. SKIN: Shows the round shaped about 0.8 cm ulcerated area medial aspect of the distal right hallux sk in with base covered by kind of grayish scab. The patient has a negative pressure dressing in the [facility] groin region following the revascularization procedure without any inflammatory changes. Periphe ral IV access. No lymphadenopathy. HEENT: Ocular movements conjugate. Oral cavity normal. NECK: Supple, no jugular vein distention. LUNGS: With symmetric clear breath sounds. HEART: S1, S2, regular rate. No S3 or S4. ABDOMEN: Soft, not distended or tender. No ascites. No bladder distention. EXTREMITIES: Pulses are faintly palpable in popliteal and dorsalis pedis. Cap refill is normal. NEUROLOGIC: Nonfocal. LABORATORY DATA: White cell count 7.3, hemoglobin 10.2, MCV 86, platelets 152 with normal differenti al except for lymphocytopenia. Sodium 135, creatinine 0.96. Reports as noted above. ASSESSMENT: Diabetes mellitus type 2, peripheral vascular disease with recent revascularization afte r multiple previous procedures in the lower extremities and a chronic ulcer with abnormal findings on MRI suggestive of either a fracture or more likely an infected area with osteomyelitis. At this poi nt, we will order plain films to see the integrity of the cortex of the hallux, distal phalanx and li maryse proceed with antimicrobial therapy given via the PICC line with broad spectrum coverage.
[2017-11-29] MEDS: metFORMIN 500 MG TAB PO SCH ×2 (08:21→15:52)
[2017-11-29] MEDS: Clopidogrel Bisulfate 75 MG TAB PO SCH (08:21)
[2017-11-29] MEDS: Tamsulosin HCl 0.4 MG CAP PO SCH (08:21)
[2017-11-29] MEDS: Gabapentin 300 MG CAP PO SCH ×3 (08:21→21:45)
[2017-11-29] MEDS: glyBURIDE 5 MG TAB PO SCH (08:21)
[2017-11-29] MEDS: Ondansetron HCl/PF 4 MG/2 ML Vial IVP PRN ×2 (09:58→15:50)
--- NOTE | 2017-11-29 23:27 | PRG ---
DATE OF SERVICE: 11/29/2017 SUBJECTIVE: No major problems. No respiratory symptoms, abdominal pain, diarrhea, or genitourinary symptoms. Noticed some drainage from the first toe, right side. OBJECTIVE: VITAL SIGNS: Vital signs are not remarkable. LUNGS: Clear. HEART: S1, S2, regular rate. ABDOMEN: Soft, not distended. EXTREMITIES: The right first toe with the ulcerated region and some drainage. LABORATORY DATA: White cell count 7.5, hemoglobin 10.7. Chemistry with a creatinine 0.96. A foot x -ray demonstrated extensive destructive changes and proximal distal phalanges of the great toe interp halangeal joint. ASSESSMENT AND DISCUSSION: Type 2 diabetes with peripheral vascular disease, recent revascularizatio n after multiple previous procedures and now evidence of osteomyelitis of the distal phalanx and dist al interphalangeal joint. The chances that he would be able to retain the distal segment of the toe are very low in view of the extent of destruction of the bone. I would recommend amputation at this point in time. It is felt to be safe from the standpoint of vascular supply. The joint is involved, so I think the patient would be at the proximal phalanx level. Cultures to be submitted so we can d etermine the antimicrobial therapy hopefully via the oral route. The duration of antimicrobial thera py would be longer than usual after amputation because of the vascular issues.
[2017-11-30 00:01] VITALS: BP 132/77; TEMP 97.9
--- NOTE | 2017-11-30 08:20 | DIS ---
HOSPITAL COURSE: The patient was admitted and underwent right common deep and superficial endarterec dragan with vein patch angioplasty and intraoperative CLASSER of the right superficial femoral artery with a 5 x 80 balloon. Postoperatively, he had significant pain in his foot for the first 24 hours, altho ugh his foot was pink and warm with good Doppler signals. He had an MRI and a foot x-ray, both showi ng phalangeal fracture and probable osteomyelitis. He was seen by Dr. Tipton and consideration was gi laura to long-term antibiotics; however, the patient opted for great toe amputation. Due to the surger y schedule it could not be performed this admission and he is being discharged today to resume his [facility] medications and will follow up with [facility] next week for outpatient right great toe amputation. Incis ions in the right groin are doing well and he has no significant edema in his leg.
[2017-11-30] MEDS: glyBURIDE 5 MG TAB PO SCH (11:16)
[2017-11-30] MEDS: metFORMIN 500 MG TAB PO SCH (11:16)
[2017-11-30] MEDS: Tamsulosin HCl 0.4 MG CAP PO SCH (11:17)
[2017-11-30] MEDS: Clopidogrel Bisulfate 75 MG TAB PO SCH (11:17)
[2017-11-30] MEDS: Gabapentin 300 MG CAP PO SCH (11:17)
== END 2017-11-30 09:25 | disposition home or self-care (01) | DRG 253 ==
LOC: SURG A 05:45
PROVIDERS: ADMIT Thoracic Surgery (Cardiothoracic Vascular Surgery); ATTEND Thoracic Surgery (Cardiothoracic Vascular Surgery)
PROC: 04CK0ZZ Extirpation of Matter from Right Femoral Artery, Open Approach (ICD-10-PCS; principal; 2017-11-26)
PROC: 04UK07Z Supplement Right Femoral Artery with Autologous Tissue Substitute, Open Approach (ICD-10-PCS; 2017-11-26)
PROC: 047K3ZZ Dilation of Right Femoral Artery, Percutaneous Approach (ICD-10-PCS; 2017-11-26)
DX: E11.51 Type 2 diabetes mellitus with diabetic peripheral angiopathy without gangrene (principal); M86.9 Osteomyelitis, unspecified; I70.235 Atherosclerosis of native arteries of right leg with ulceration of other part of foot; I25.10 Atherosclerotic heart disease of native coronary artery without angina pectoris; I10 Essential (primary) hypertension; J45.909 Unspecified asthma, uncomplicated; M10.9 Gout, unspecified; E11.69 Type 2 diabetes mellitus with other specified complication
CPT/HCPCS: 36246; 36415; 36416; 36430; 75630; 75716; 76001; 76942; 80048; 85025; 86850; 86900; 86901; 96374; C1725; C1769; C1887; G8978-GP-CL; G8979-GP-CI; J1642; J1644; J1956; J2001; J2270; J2370; J2405; J2550; J2704; J2720; J3010; J3490; Q9961

== ENCOUNTER 2017-12-03 06:45 | Day surgery (SDC) | payer MEDICARE, BC ==
[2017-12-03 07:32] LABS: #Basophils 0.1 thou/uL (0.0-0.2); #Eosinphils 0.5 thou/uL (0.0-0.7); #Lymphocytes 1.8 thou/uL (1.20-3.40); #Monocytes 0.7 thou/uL (0.11-0.59); #Neutrophils 5.2 thou/uL (1.40-6.50); %Basophils 0.7 % (0.0-1.0); %Eosinophils 5.8 % (0.0-10.0); %Lymphocytes 22.1 % (21.0-51.0); %Monocytes 8.5 % (0.0-10.0); %Neutrophils 62.9 % (42.0-75.0); Hemoglobin 12.7 g/dL (14.0-18.0); Mean Corpuscular Hemoglobin 27.6 pg (27.0-31.0); Mean Corpuscular Volume 86.2 fL (78.0-98.0); Mean Platelet Volume 7.1 fL (7.4-10.4); Platelet Count 241 thou/uL (130-400); RBC Distribution Width 16.2 % (11.5-14.5); Red Blood Cell (RBC) Count 4.58 mill/uL (4.70-6.10); White Blood Cell (WBC) Count 8.3 thou/uL (4.8-10.8)
[2017-12-03 07:55] LABS: Anion Gap 14 mmol/L (10-20); BUN (Urea Nitrogen) 23 mg/dL (8.4-25.7); Calc. Creatinine Clearance 0 mL/min (70-130); Calcium 9.8 mg/dL (7.8-10.44); Carbon Dioxide 27 mmol/L (23-31); Chloride 97 mmol/L (98-107); Estimated GFR-MDRD 54; Glucose 181 mg/dL (83-110); Potassium 3.9 mmol/L (3.5-5.1); Sodium 134 mmol/L (136-145)
[2017-12-03] MEDS ORDERED: Levofloxacin 500 mg/D5W 100 ml Premix Bag ONE (07:58)
[2017-12-03] MEDS ORDERED: Bupivacaine 0.25% HCL 30 ML VIAL ONE (08:28)
[2017-12-03] MEDS ORDERED: Ketamine 50 MG/ML VIAL ONE (08:35)
[2017-12-03] MEDS ORDERED: Fentanyl 100 MCG/2 ML VIAL ONE (08:35)
[2017-12-03] MEDS ORDERED: Propofol 500 MG/50 ML VIAL ONE (08:35)
--- NOTE | 2017-12-03 11:27 | OP ---
PREOPERATIVE DIAGNOSIS: Osteomyelitis, right great toe. PROCEDURE: Right great toe amputation. SURGEON: Holland López M.D. ANESTHESIA: DESCRIPTION OF PROCEDURE: After prepping and draping the right foot, the 1 cm ulcer was excise d down to the phalanx. The bone itself was soft and nonviable. At this point, it was elected to rem ove the distal aspect of right great toe with a circumferential incision encompassing the dorsal aspe ct of the great toe including the plantar aspect impact. After removing this, the bone was debrided back to good bone in the proximal phalanx. There was some bleeding and this was handled with coagula tion. The area was irrigated and single nylon sutures used to approximate the lateral aspect of the anterior and posterior flap and to allow packing of the medial aspect of the wound. Dressings were a pplied and the patient has to be taken to the recovery room with outpatient wound care to follow.
[2017-12-03] MEDS ORDERED: Lidocaine 1% PF 5 ML VIAL ONE (17:15)
[2017-12-03] MEDS ORDERED: Ondansetron HCl/PF 4 MG/2 ML Vial ONE (17:15)
[2017-12-03] MEDS ORDERED: Glycopyrrolate 0.2 MG/ML 5 ML SYRINGE ONE (17:15)
[2017-12-03] MEDS ORDERED: PHENYLEPHRINE-NS 100 MCG/ML 10 ML SYRINGE ONE (17:15)
[2017-12-03] MEDS ORDERED: PROPOFOL 200 MG/20 ML VIAL ONE (17:15)
== END 2017-12-03 11:35 | disposition home or self-care (01) ==
LOC: SDC 06:45
PROVIDERS: ATTEND Thoracic Surgery (Cardiothoracic Vascular Surgery)
PROC: 0Y6P0Z0 Detachment at Right 1st Toe, Complete, Open Approach (ICD-10-PCS; principal; 2017-12-03)
DX: E11.69 Type 2 diabetes mellitus with other specified complication (principal); M86.8X7 Other osteomyelitis, ankle and foot; E11.621 Type 2 diabetes mellitus with foot ulcer; L97.519 Non-pressure chronic ulcer of other part of right foot with unspecified severity; I25.10 Atherosclerotic heart disease of native coronary artery without angina pectoris; I10 Essential (primary) hypertension; M19.90 Unspecified osteoarthritis, unspecified site; J45.909 Unspecified asthma, uncomplicated; M10.9 Gout, unspecified; Z87.891 Personal history of nicotine dependence; Z79.02 Long term (current) use of antithrombotics/antiplatelets; Z79.84 Long term (current) use of oral hypoglycemic drugs; Z79.82 Long term (current) use of aspirin; Z79.899 Other long term (current) drug therapy; Z88.0 Allergy status to penicillin; Z88.1 Allergy status to other antibiotic agents; Z88.5 Allergy status to narcotic agent; Z91.048 Other nonmedicinal substance allergy status; Z95.1 Presence of aortocoronary bypass graft; Z96.651 Presence of right artificial knee joint
CPT/HCPCS: 36415; 80048; 85025; J0131; J1956; J2001; J2405; J2704; J3010; S0020

== ENCOUNTER 2017-12-05 12:26 | Outpatient (CLI) | payer MEDICARE, BC ==
[~2017-12-05 12:26] MED LIST changes: -Fentanyl 100 MCG/2 ML VIAL ONE; -Iopamidol 370 76% 50 ML VIAL FS ONE; -Lidocaine 1% (PF) 30 ML VIAL ONE; +Sodium Chloride 0.9% 15 ML NEB ONE
--- NOTE | 2017-12-05 18:35 | HP ---
DATE OF SERVICE: 12/05/2017 REFERRING PHYSICIAN: Dr. Holland López. HISTORY OF PRESENT ILLNESS: Mr. Dewey Platt is a very pleasant 72-year-old gentleman accompanied by his who presents [facility] the [facility] for evaluation of a wound of the right great toe subsequ ent to amputation on 12/03/[address] Holland López. Previously on 11/26/2017, the patient had underg one extended right common profunda and superficial femoral endarterectomy with vein patch angioplasty on 11/26/2017. Subsequent to amputation of the right great toe, the patient was referred to the [facility] for further evaluation and treatment. At the time of surgery, the wound was left open for healing by secondary intention. PAST MEDICAL HISTORY: 1. Hypertension. 2. Chronic back pain. 3. Asthma. 4. Arthritis. 5. Gout. 6. Diabetes mellitus. 7. Peripheral vascular disease. 8. History of transient ischemic attack. 9. Osteoarthritis. 10. Coronary artery disease. PAST SURGICAL HISTORY: 1. Tonsillectomy. 2. Cholecystectomy/bilateral inguinal hernia repairs. 3. Back surgery x3. 4. Right knee surgery. 5. Coronary artery bypass grafting x4. 6. Left femoral to infragenicular popliteal artery bypass with nonreversed saphenous vein in situ. 7. Right total knee arthroplasty. 8. Vein patch angioplasty of distal vein graft and anastomosis. 9. Revision of left distal anastomosis of fem-pop graft. Extended right common, profunda, and super ficial femoral endarterectomy with vein patch angioplasty, 11/26/2017. 10. Right great toe amputation, 12/03/2017. MEDICATIONS: 1. Glyburide. 2. Multivitamin. 3. Metformin. 4. Allopurinol. 5. Lasix. 6. Ibuprofen. 7. Gabapentin. 8. Zocor. ALLERGIES: ADHESIVE, PENICILLIN, KEFLEX, ZYRTEC and HYDROCODONE. SOCIAL HISTORY: Significant for tobacco use in the remote past. The patient denies any current alco hol use. FAMILY HISTORY: Negative for diabetes mellitus or coronary artery disease. PHYSICAL EXAMINATION: VITAL SIGNS: Temperature 97.6, pulse 87, respirations 20, blood pressure 154/86. GENERAL: A 72-year-old gentleman sitting on chair in examination room in no acute distress. HEENT: Normocephalic, atraumatic. NECK: No nuchal rigidity. CHEST: Clear to auscultation. CARDIAC: Regular rate and rhythm. ABDOMEN: Soft. EXTREMITIES: A wound of the right great toe is present which measures approximately 2.1 x 4.0 cm. T he depth of the wound is approximately 2.6 cm. Granulation tissue is present within the wound margin s. No purulent drainage is associated with the wound. Slight erythema of the skin surrounding the w ound is present. No maceration of the skin of the periwound is noted. A dorsalis pedis pulse is eas ivy palpable on the right. No significant edema of the right foot is present on exam today. ASSESSMENT AND PLAN: 1. Wound of right great toe subsequent to right great toe amputation on 12/03/2017. Dressing change s of Silverlon, 4 x 4s, Kerlix, and an Phani bandage will be initiated today. These dressing changes a re to be performed on a daily basis after cleansing and irrigation with the assistance of the patient 's . I will see Mr. Platt again in 1-2 weeks. No antibiotics will be prescribed today based o n the appearance of the wound. The patient and his understand and are in agreement with the pre ceding treatment plan. 2. Hypertension. 3. Chronic back pain. 4. Asthma. 5. Arthritis. 6. Gout. 7. Diabetes mellitus. Accu-Cheks will be obtained at the time of the patient's clinic visits. The patient has been told that for optimal wound healing, his blood glucoses should remain below 150. 8. Peripheral vascular disease. 9. History of transient ischemic attack. 10. Osteoarthritis 11. Coronary artery disease.
== END 2017-12-05 12:27 | disposition home or self-care (01) ==
LOC: WCC 12:26
PROVIDERS: ATTEND Family Medicine
DX: Z47.81 Encounter for orthopedic aftercare following surgical amputation (principal); I10 Essential (primary) hypertension; M54.9 Dorsalgia, unspecified; J45.909 Unspecified asthma, uncomplicated; M19.90 Unspecified osteoarthritis, unspecified site; M10.9 Gout, unspecified; E11.9 Type 2 diabetes mellitus without complications; I73.9 Peripheral vascular disease, unspecified; I25.10 Atherosclerotic heart disease of native coronary artery without angina pectoris; Z89.412 Acquired absence of left great toe; Z86.73 Personal history of transient ischemic attack (TIA), and cerebral infarction without residual deficits
CPT/HCPCS: 82962; A4649; 36416; A4218

== ENCOUNTER 2017-12-12 12:36 | Outpatient (CLI) | payer MEDICARE, BC ==
--- NOTE | 2017-12-12 14:18 | PRG ---
DATE OF SERVICE: 12/12/2017 HISTORY: Mr. Dewey Platt is a very pleasant 72-year-old gentleman accompanied by his who presents to the [facility] for evaluation of a wound of the right great toe subsequent to amputati on on 12/03/[address] Holland López. Previously on 11/26/2017 the patient had undergone extended rig ht common profunda and superficial femoral endarterectomy with vein patch angioplasty on 11/26/2017. Subsequent to amputation of the right great toe the patient was referred to the Wound Center for fur ther evaluation and treatment. At the time of surgery, the wound was left open for healing by second zeferino intention. Since the patient's last visit, Mr. Platt has been receiving dressing changes of Si lverlon, 4 x 4s, Kerlix, and an Phani bandage on a daily basis after cleansing and irrigation with the assistance of his . PHYSICAL EXAMINATION: VITAL SIGNS: Temperature 99.5, pulse 95, respirations 19, blood pressure 138/75. Accu-Chek 138. EXTREMITIES: A wound of the right great toe is present which measures approximately 1.7 x 3.0 cm. T he depth of the wound is approximately 0.8 cm. The depth of the wound at the time of the patient's l ast visit was approximately 2.6 cm. Granulation tissue is present within the wound margins. No puru lent drainage is associated with the wound. No erythema of the skin surrounding the wound is present . No maceration of the skin of the periwound is noted. A dorsalis pedis pulse is easily palpable on the right. No significant edema of the right foot is present on exam today. ASSESSMENT AND PLAN: 1. Wound of right great toe subsequent to right great toe amputation on 12/03/2017. Dressing change s of Silverlon, 4 x 4s, Kerlix, and an Phani bandage will be continued on a daily basis after cleansing and irrigation with the assistance of the patient's . I will see Mr. Platt again in one week. The patient states he has a followup appointment with Dr. López in 2 weeks. 2. Hypertension. 3. Chronic back pain. 4. Asthma. 5. Arthritis. 6. Gout. 7. Diabetes mellitus. The patient's Accu-Chek in clinic today is 138. The patient has been reminde d that for optimal wound healing, his blood glucoses should remain below 150. 8. Peripheral vascular disease. 9. History of transient ischemic attack. 10. Osteoarthritis. 11. Coronary artery disease.
[2017-12-12] MEDS ORDERED: Sodium Chloride 0.9% 15 ML NEB ONE (15:53)
== END 2017-12-12 12:37 | disposition home or self-care (01) ==
LOC: WCC 12:36
PROVIDERS: ATTEND Family Medicine
DX: T81.89XD Other complications of procedures, not elsewhere classified, subsequent encounter (principal); I10 Essential (primary) hypertension; M54.9 Dorsalgia, unspecified; G89.29 Other chronic pain; J45.909 Unspecified asthma, uncomplicated; M19.90 Unspecified osteoarthritis, unspecified site; M10.9 Gout, unspecified; E11.51 Type 2 diabetes mellitus with diabetic peripheral angiopathy without gangrene; I25.10 Atherosclerotic heart disease of native coronary artery without angina pectoris; Z86.73 Personal history of transient ischemic attack (TIA), and cerebral infarction without residual deficits
CPT/HCPCS: 97602; A4218

== ENCOUNTER 2017-12-19 12:46 | Outpatient (CLI) | payer MEDICARE, BC ==
[~2017-12-19 12:46] MED LIST changes: +Lidocaine 2% Jelly 5 ML TUBE ONE
--- NOTE | 2017-12-19 14:20 | PRG ---
DATE OF SERVICE: 12/19/2017 HISTORY: Mr. Dewey Platt is a very pleasant 72-year-old gentleman accompanied by his who pre sents to the Wound Center for evaluation of a wound of the right great toe subsequent to amputation o n 12/03/[address] Holland López. Previously on 11/26/2017, the patient had undergone extended right common profunda and superficial femoral endarterectomy with vein patch angioplasty on 11/26/2017. Russ bsequent to amputation of the right great toe, the patient was referred to the [facility] for critical access hospital evaluation and treatment. At the time of surgery, the wound was left open for healing by secondar y intention. Since the patient's last visit, Mr. Platt has been receiving dressing changes of Silv erlon, 4 x 4s, Kerlix, and an Phani bandage on a daily basis after cleansing and irrigation with the as sistance of his . PHYSICAL EXAMINATION: VITAL SIGNS: Temperature 97.7, pulse 78, respirations 16, blood pressure 117/64. Accu-Chek 145. EXTREMITIES: A wound of the right great toe is present, which measures approximately 1.7 x 1.8 cm. The depth of the wound is approximately 0.9 cm. Granulation tissue is present within the wound jose ns. No purulent drainage is associated with the wound. No erythema of the skin surrounding the woun d is present. No maceration of the skin of the periwound is noted. A dorsalis pedis pulse is easily palpable on the right. No significant edema of the right foot is present on exam today. ASSESSMENT AND PLAN: 1. Wound of right great toe subsequent to right great toe amputation on 12/03/2017. Dressing change s of Silverlon, 4 x 4s, Kerlix, and an Phani bandage will be continued on a daily basis after cleansing and irrigation with the assistance of the patient's . The patient has an appointment with Dr. Todd staples in 1 week. I will see Mr. Platt again as needed after his evaluation by Dr. López. 2. Hypertension. 3. Chronic back pain. 4. Asthma. 5. Arthritis. 6. Gout. 7. Diabetes mellitus. The patient's Accu-Chek in clinic today is 145. The patient has been reminde d that for optimal wound healing, his blood glucoses should remain below 150. 8. Peripheral vascular disease. 9. History of transient ischemic attack. 10. Osteoarthritis. 11. Coronary artery disease.
== END 2017-12-19 12:47 | disposition home or self-care (01) ==
LOC: WCC 12:46
PROVIDERS: ATTEND Family Medicine
DX: T81.89XD Other complications of procedures, not elsewhere classified, subsequent encounter (principal); I10 Essential (primary) hypertension; J45.909 Unspecified asthma, uncomplicated; M19.90 Unspecified osteoarthritis, unspecified site; M54.9 Dorsalgia, unspecified; G89.29 Other chronic pain; I25.10 Atherosclerotic heart disease of native coronary artery without angina pectoris; M10.9 Gout, unspecified; E11.9 Type 2 diabetes mellitus without complications; I73.9 Peripheral vascular disease, unspecified; Z86.73 Personal history of transient ischemic attack (TIA), and cerebral infarction without residual deficits
CPT/HCPCS: 97602; A4218

== ENCOUNTER 2019-08-20 16:37 | Inpatient (IN) | payer MEDICARE, BC ==
[~2019-08-20 16:37] MED LIST changes: +Dexamethasone 20 MG/5 ML VIAL ONE; +Lidocaine 1% PF 5 ML VIAL ONE; -Lidocaine 2% Jelly 5 ML TUBE ONE; +Metoclopramide HCl 10 MG/2 ML VIAL ONE; +Ondansetron PF 4 MG/2 ML Vial ONE; +PROPOFOL 200 MG/20 ML VIAL ONE; -Sodium Chloride 0.9% 15 ML NEB ONE; +Succinylcholine Chloride 20 MG/ML 10 ml SYRINGE FS ONE
[2019-08-20] MEDS ORDERED: Lidocaine 1% w/Epinephrine 1:100K 20 ML VIAL ONE (17:29)
[2019-08-20] MEDS ORDERED: Vancomycin HCl 1.75 GM in Sodium Chloride 0.9% 500 ML IVPB SCH (18:30)
[2019-08-20] MEDS ORDERED: Lidocaine 2% Jelly 5 ML TUBE ONE (18:59)
[2019-08-20] MEDS ORDERED: Fentanyl 100 MCG/2 ML VIAL ONE (18:59)
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
[2019-08-20] MEDS ORDERED: Acetaminophen 325 MG TAB PO PRN (19:16)
[2019-08-20] MEDS ORDERED: Ibuprofen 600 MG TAB PO PRN (19:16)
[2019-08-20] MEDS ORDERED: Ondansetron ODT 4 MG TAB PO PRN (19:16)
[2019-08-20] MEDS ORDERED: Fentanyl 100 MCG/2 ML VIAL SLOW IVP PRN (19:16)
[2019-08-20] MEDS ORDERED: Midazolam HCl 2 mg/2 ml Vial ONE (19:22)
[2019-08-20 19:26] LABS: #Eosinphils 0.1 thou/uL (0.0-0.7); #Monocytes 0.7 thou/uL (0.11-0.59); %Basophils 0.4 % (0.0-1.0); %Eosinophils 1.1 % (0.0-10.0); %Lymphocytes 20.8 % (21.0-51.0); %Monocytes 7.1 % (0.0-10.0); %Neutrophils 70.6 % (42.0-75.0); Hemoglobin 12.5 g/dL (14.0-18.0); Mean Corpuscular HGB CONC 34.3 g/dL (32.0-36.0); Mean Corpuscular Hemoglobin 31.2 pg (27.0-31.0); Mean Corpuscular Volume 90.8 fL (78.0-98.0); Mean Platelet Volume 8.6 fL (7.4-10.4); Platelet Count 165 thou/uL (130-400); RBC Distribution Width 13.6 % (11.5-14.5); White Blood Cell (WBC) Count 9.9 thou/uL (4.8-10.8)
[2019-08-20 19:33] LABS: INR-International Normal Ratio 1.1; PTT 24.2 sec (22.9-36.1); Prothrombin Time 14.2 sec (12.0-14.7)
[2019-08-20] MEDS ORDERED: Famotidine/PF 20 mg/2ml Vial ONE (19:33)
[2019-08-20 19:44] LABS: Anion Gap 14 mmol/L (10-20); BUN (Urea Nitrogen) 18 mg/dL (8.4-25.7); Calc. Creatinine Clearance 0 mL/min (70-130); Carbon Dioxide 24 mmol/L (23-31); Chloride 105 mmol/L (98-107); Estimated GFR-MDRD 52; Glucose 233 mg/dL (83-110); Potassium 4.5 mmol/L (3.5-5.1); Sodium 138 mmol/L (136-145)
[2019-08-20] MEDS ORDERED: Ondansetron HCl/PF 4 MG/2 ML Vial IVP PRN (20:12)
[2019-08-20] MEDS ORDERED: Promethazine HCl 25 MG/ML VIAL IM PRN (20:12)
[2019-08-20] MEDS ORDERED: Promethazine HCl 25 MG/ML VIAL SLOW IVP PRN (20:12)
--- NOTE | 2019-08-20 20:42 | OP ---
DATE OF PROCEDURE: 08/20/2019 PREOPERATIVE DIAGNOSIS: Large left calf hematoma. POSTOPERATIVE DIAGNOSIS: Large left calf hematoma. PROCEDURE PERFORMED: Evacuation of hematoma and closure. ANESTHESIA: General endotracheal. ESTIMATED BLOOD LOSS: Approximately 500 mL of clot was removed, but no further blood loss. DESCRIPTION OF PROCEDURE: After consent was obtained from the patient, he was brought to the operating room and placed in supine position on the operating table. Appropriate central line and monitors were placed and general endotracheal anesthesia was induced. During the transport and prep process, the hematoma split posteriorly. Once he was prepped and draped, the hematoma was evacuated. The hematoma cavity was then copiously irrigated. The skin was thin, but appeared viable. The underlying tissue was into the dermis and appeared to again be viable, and there was no bleeding. The skin was reapproximated with clips loosely. A fluff dressing was then applied after Xeroform gauze had been applied over the wound and the leg was then wrapped with a Kerlix followed by an Phani bandage. My hope is that the skin will act just as a skin graft would and re-adhere to the underlying dermis. If not, he will need resection and split-thickness skin grafting of this area. The area itself measured approximately 20 cm x 10 cm on the posterior calf. Job ID: [id number] [facility]
[2019-08-20] MEDS: Atenolol 25 MG TAB PO SCH (21:46)
[2019-08-20] MEDS: Simvastatin 20 MG TAB PO SCH (21:46)
[2019-08-20] MEDS: Gabapentin 300 MG CAP PO SCH (21:46)
[2019-08-20] MEDS: Clindamycin/D5W 900 MG in Premix Bag 1 BAG IVPB SCH (21:48)
[2019-08-20] MEDS: Sodium Chloride 0.9% 1,000 ML IV SCH (21:52)
[2019-08-20 22:00] VITALS: BMI 27.9
[2019-08-21 03:55] LABS: #Lymphocytes 0.8 thou/uL (1.20-3.40); #Monocytes 0.1 thou/uL (0.11-0.59); #Neutrophils 5.9 thou/uL (1.40-6.50); %Basophils 0.2 % (0.0-1.0); %Eosinophils 0.1 % (0.0-10.0); %Lymphocytes 12.2 % (21.0-51.0); %Monocytes 1.5 % (0.0-10.0); %Neutrophils 86.1 % (42.0-75.0); Hemoglobin 11.5 g/dL (14.0-18.0); Mean Corpuscular HGB CONC 34.3 g/dL (32.0-36.0); Mean Corpuscular Hemoglobin 31.4 pg (27.0-31.0); Mean Corpuscular Volume 91.6 fL (78.0-98.0); Mean Platelet Volume 8.9 fL (7.4-10.4); Platelet Count 145 thou/uL (130-400); RBC Distribution Width 13.6 % (11.5-14.5); Red Blood Cell (RBC) Count 3.65 mill/uL (4.70-6.10); White Blood Cell (WBC) Count 6.8 thou/uL (4.8-10.8)
[2019-08-21] MEDS: Clindamycin/D5W 900 MG in Premix Bag 1 BAG IVPB SCH ×3 (05:31→17:38)
[2019-08-21] MEDS: Furosemide 80 MG TAB PO SCH (09:21)
[2019-08-21] MEDS: Atenolol 25 MG TAB PO SCH ×2 (09:21→21:48)
[2019-08-21] MEDS: Aspirin 81 mg Enteric Coated Tablet PO SCH (09:21)
[2019-08-21] MEDS: Gabapentin 300 MG CAP PO SCH ×2 (09:21→21:48)
[2019-08-21] MEDS: Tamsulosin HCl 0.4 MG CAP PO SCH (09:22)
[2019-08-21] MEDS: glyBURIDE 5 MG TAB PO SCH ×2 (09:22→17:37)
[2019-08-21] MEDS: Allopurinol 100 MG TAB PO SCH (09:22)
[2019-08-21] MEDS: metFORMIN 500 MG TAB PO SCH ×2 (09:22→17:37)
[2019-08-21] MEDS: Multivit, Therapeutic 1 TAB PO SCH (09:22)
[2019-08-21] MEDS: Sodium Chloride 0.9% 1,000 ML IV SCH (09:23)
[2019-08-21] MEDS: Simvastatin 20 MG TAB PO SCH (21:48)
[2019-08-21] MEDS ORDERED: Dextrose 50% Abboject 50 ML SYRINGE IVP PRN (22:21)
[2019-08-21] MEDS ORDERED: Dextrose 5% in Water 1,000 ML IV PRN (22:21)
[2019-08-21] MEDS ORDERED: Insulin Regular 300 UNITS/3 ML VIAL SC PRN (22:21)
[2019-08-22] MEDS: Clindamycin/D5W 900 MG in Premix Bag 1 BAG IVPB SCH ×3 (00:17→18:24)
[2019-08-22] MEDS: Sodium Chloride 0.9% 1,000 ML IV SCH (01:45)
[2019-08-22 04:02] LABS: #Lymphocytes 1.9 thou/uL (1.20-3.40); #Monocytes 0.8 thou/uL (0.11-0.59); #Neutrophils 6.3 thou/uL (1.40-6.50); %Basophils 0.4 % (0.0-1.0); %Eosinophils 0.2 % (0.0-10.0); %Lymphocytes 21.3 % (21.0-51.0); %Monocytes 8.9 % (0.0-10.0); %Neutrophils 69.3 % (42.0-75.0); Hemoglobin 10.2 g/dL (14.0-18.0); Mean Corpuscular HGB CONC 34.2 g/dL (32.0-36.0); Mean Corpuscular Hemoglobin 31.2 pg (27.0-31.0); Mean Corpuscular Volume 91.1 fL (78.0-98.0); Platelet Count 151 thou/uL (130-400); RBC Distribution Width 13.8 % (11.5-14.5); Red Blood Cell (RBC) Count 3.27 mill/uL (4.70-6.10); White Blood Cell (WBC) Count 9.1 thou/uL (4.8-10.8)
[2019-08-22] MEDS: Atenolol 25 MG TAB PO SCH ×2 (09:56→21:19)
[2019-08-22] MEDS: Aspirin 81 mg Enteric Coated Tablet PO SCH (09:56)
[2019-08-22] MEDS: Gabapentin 300 MG CAP PO SCH ×2 (09:56→21:19)
[2019-08-22] MEDS: metFORMIN 500 MG TAB PO SCH ×2 (09:56→18:24)
[2019-08-22] MEDS: glyBURIDE 5 MG TAB PO SCH ×2 (09:57→18:24)
[2019-08-22] MEDS: Allopurinol 100 MG TAB PO SCH (09:57)
[2019-08-22] MEDS: Multivit, Therapeutic 1 TAB PO SCH (09:57)
[2019-08-22] MEDS: Tamsulosin HCl 0.4 MG CAP PO SCH (09:57)
[2019-08-22] MEDS: Furosemide 80 MG TAB PO SCH (10:00)
[2019-08-22] MEDS: Atorvastatin Calcium 10 MG TAB PO SCH (21:19)
[2019-08-23] MEDS: Clindamycin/D5W 900 MG in Premix Bag 1 BAG IVPB SCH ×3 (00:32→18:11)
[2019-08-23] MEDS: glyBURIDE 5 MG TAB PO SCH ×2 (09:53→18:11)
[2019-08-23] MEDS: Aspirin 81 mg Enteric Coated Tablet PO SCH (09:53)
[2019-08-23] MEDS: Tamsulosin HCl 0.4 MG CAP PO SCH (09:53)
[2019-08-23] MEDS: metFORMIN 500 MG TAB PO SCH ×2 (09:53→18:10)
[2019-08-23] MEDS: Atenolol 25 MG TAB PO SCH ×2 (09:53→21:43)
[2019-08-23] MEDS: Multivit, Therapeutic 1 TAB PO SCH (09:54)
[2019-08-23] MEDS: Allopurinol 100 MG TAB PO SCH (09:54)
[2019-08-23] MEDS: Gabapentin 300 MG CAP PO SCH ×2 (09:54→21:43)
[2019-08-23] MEDS: Furosemide 80 MG TAB PO SCH (09:54)
[2019-08-23 21:43] VITALS: BP 133/72
[2019-08-23] MEDS: Atorvastatin Calcium 10 MG TAB PO SCH (21:43)
[2019-08-24] MEDS: Clindamycin/D5W 900 MG in Premix Bag 1 BAG IVPB SCH ×2 (00:28→09:55)
[2019-08-24] MEDS: glyBURIDE 5 MG TAB PO SCH (09:54)
[2019-08-24] MEDS: Furosemide 80 MG TAB PO SCH (09:54)
[2019-08-24] MEDS: Gabapentin 300 MG CAP PO SCH (09:55)
[2019-08-24] MEDS: Aspirin 81 mg Enteric Coated Tablet PO SCH (09:55)
[2019-08-24] MEDS: metFORMIN 500 MG TAB PO SCH (09:55)
[2019-08-24] MEDS: Allopurinol 100 MG TAB PO SCH (09:55)
[2019-08-24] MEDS: Tamsulosin HCl 0.4 MG CAP PO SCH (09:55)
[2019-08-24] MEDS: Atenolol 25 MG TAB PO SCH (09:55)
[2019-08-24] MEDS: Multivit, Therapeutic 1 TAB PO SCH (09:55)
[2019-08-24 10:22] VITALS: TEMP 98.6
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
== END 2019-08-24 10:20 | disposition home or self-care (01) | DRG 605 ==
LOC: ERS 16:37 → IMCU/EMU 19:17 → SDC/OP 19:54 → IMCU/EMU 20:53
PROVIDERS: ADMIT Thoracic Surgery (Cardiothoracic Vascular Surgery); ATTEND Thoracic Surgery (Cardiothoracic Vascular Surgery)
PROC: 0HCLXZZ Extirpation of Matter from Left Lower Leg Skin, External Approach (ICD-10-PCS; principal; 2019-08-20)
DX: S80.12XA Contusion of left lower leg, initial encounter (principal); X58.XXXA Exposure to other specified factors, initial encounter; E11.51 Type 2 diabetes mellitus with diabetic peripheral angiopathy without gangrene; I10 Essential (primary) hypertension; J45.909 Unspecified asthma, uncomplicated; M19.90 Unspecified osteoarthritis, unspecified site; I25.10 Atherosclerotic heart disease of native coronary artery without angina pectoris; E78.5 Hyperlipidemia, unspecified; E78.00 Pure hypercholesterolemia, unspecified; S81.812A Laceration without foreign body, left lower leg, initial encounter; Z96.651 Presence of right artificial knee joint; Z90.49 Acquired absence of other specified parts of digestive tract; Z86.73 Personal history of transient ischemic attack (TIA), and cerebral infarction without residual deficits; Z95.1 Presence of aortocoronary bypass graft; Z89.421 Acquired absence of other right toe(s); Z88.1 Allergy status to other antibiotic agents; Z88.0 Allergy status to penicillin; Z88.5 Allergy status to narcotic agent; Z88.8 Allergy status to other drugs, medicaments and biological substances
CPT/HCPCS: 36415; 36416; 80048; 85025; 85610; 85730; 86850; 86900; 86901; 96374; G0390; J1100; J1815; J2001; J2250; J2405; J2704; J2765; J3010; J3370; J3490; J7030; S0028

== ENCOUNTER 2020-03-14 12:26 | Emergency (ER) | payer OTHER, MEDICARE ==
[2020-03-14] MEDS ORDERED: Lidocaine 2% PF 5 ML VIAL ONE (12:50)
[2020-03-14] MEDS ORDERED: Boostrix 0.5 ML (Tdap) VIAL ONE (12:57)
[2020-03-14] MEDS ORDERED: Bacitracin 1 PK ONE ×2 (12:57→14:07)
[2020-03-14] MEDS ORDERED: Lidocaine 2% w/Epinephrine 1:200K 20 ML VIAL NERVE BLCK SCH (13:00)
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
== END 2020-03-14 14:32 | disposition home or self-care (01) ==
LOC: ERS 12:26
DX: S81.812A Laceration without foreign body, left lower leg, initial encounter (principal); S41.012A Laceration without foreign body of left shoulder, initial encounter; I10 Essential (primary) hypertension; I25.10 Atherosclerotic heart disease of native coronary artery without angina pectoris; E11.9 Type 2 diabetes mellitus without complications; E78.5 Hyperlipidemia, unspecified; E78.00 Pure hypercholesterolemia, unspecified; V89.2XXA Person injured in unspecified motor-vehicle accident, traffic, initial encounter; Z23 Encounter for immunization; Z87.891 Personal history of nicotine dependence
CPT/HCPCS: 12002; 70450; 72125; 90471; 90715; J2001

== ENCOUNTER 2020-03-15 13:31 | Emergency (ER) | payer MEDICARE | END 2020-03-15 16:06 | disposition home or self-care (01) | LOC: ERS 13:31 | DX: T81.31XA Disruption of external operation (surgical) wound, not elsewhere classified, initial encounter (principal); E11.9 Type 2 diabetes mellitus without complications; E78.5 Hyperlipidemia, unspecified; E78.00 Pure hypercholesterolemia, unspecified; I10 Essential (primary) hypertension; Z87.891 Personal history of nicotine dependence; Z79.899 Other long term (current) drug therapy | CPT/HCPCS: 99282 ==

== ENCOUNTER 2020-06-11 10:30 | Outpatient (CLI) | payer MEDICARE, BC ==
[2020-06-11] MEDS ORDERED: Magnevist 469MG/ML 20 ML VIAL ONE (12:37)
== END 2020-06-11 10:31 | disposition home or self-care (01) ==
LOC: BICMRI 10:30
PROVIDERS: ATTEND Internal Medicine
DX: F03.90 Unspecified dementia, unspecified severity, without behavioral disturbance, psychotic disturbance, mood disturbance, and anxiety (principal); I67.82 Cerebral ischemia; I63.81 Other cerebral infarction due to occlusion or stenosis of small artery
CPT/HCPCS: 70553; 82565; A9579

== ENCOUNTER 2022-04-28 13:59 | Emergency (ER) | payer OTHER, MEDICARE, BC | END 2022-04-28 16:06 | disposition home or self-care (01) | LOC: ERS 13:59 | DX: S30.0XXA Contusion of lower back and pelvis, initial encounter (principal); I25.10 Atherosclerotic heart disease of native coronary artery without angina pectoris; E11.9 Type 2 diabetes mellitus without complications; E78.5 Hyperlipidemia, unspecified; I10 Essential (primary) hypertension; Z87.891 Personal history of nicotine dependence; W01.0XXA Fall on same level from slipping, tripping and stumbling without subsequent striking against object, initial encounter | CPT/HCPCS: 72072; 72100; 72170 ==

== ENCOUNTER 2022-08-28 13:10 | Inpatient (IN) | payer MEDICARE, BC ==
[2022-08-28 13:51] LABS: #Basophils 0.1 thou/uL (0.0-0.2); #Eosinphils 0.1 thou/uL (0.0-0.7); #Monocytes 0.6 thou/uL (0.11-0.59); #Neutrophils 5.9 thou/uL (1.40-6.50); %Basophils 0.7 % (0.0-1.0); %Eosinophils 1.7 % (0.0-10.0); %Lymphocytes 16.6 % (21.0-51.0); %Monocytes 7.4 % (0.0-10.0); %Neutrophils 73.5 % (42.0-75.0); Mean Corpuscular HGB CONC 33.8 g/dL (32.0-36.0); Mean Corpuscular Hemoglobin 30.9 pg (27.0-31.0); Mean Corpuscular Volume 91.5 fl (78.0-98.0); Mean Platelet Volume 9.8 fL (7.4-10.4); Platelet Count 144 10x3/uL (130-400); RBC Distribution Width 15.1 % (11.5-14.5); Red Blood Cell (RBC) Count 3.88 mill/uL (4.70-6.10)
[2022-08-28 14:16] LABS: ALT (SGPT) 12 U/L (8-55); AST (SGOT) 16 U/L (5-34); Albumin 4.1 g/dL (3.4-4.8); Alkaline Phosphatase 116 U/L (40-110); Anion Gap 18 mmol/L (10-20); BUN (Urea Nitrogen) 39 mg/dL (8.4-25.7); Bilirubin, Total 0.7 mg/dL (0.2-1.2); CK (CPK) 43 U/L (30-200); Calc. Creatinine Clearance 0 mL/min (70-130); Calcium 10.1 mg/dL (7.8-10.44); Carbon Dioxide 26 mmol/L (23-31); Chloride 100 mmol/L (98-107); Estimated GFR 12; Globulin 3.1 g/dL (2.4-3.5); Lipase 27 U/L (8-78); Protein, Total 7.2 g/dL (5.8-8.1); Sodium 138 mmol/L (136-145)
[2022-08-28 14:43] LABS: Glucose 53 mg/dL (83-110); Potassium 6.2 mmol/L (3.5-5.1)
[2022-08-28] MEDS ORDERED: Dextrose 50% Abboject 50 ML SYRINGE ONE (14:46)
[2022-08-28 14:52] LABS: Bacteria/HPF None Seen HPF (None Seen); Bilirubin Negative (Negative); Blood, Urine Negative (Negative); CAUTI Indications for Culture Alt mental st,lethar; Clarity Clear (Clear); Glucose, Urine (Dipstick) Normal (Negative); Ketone, Urine Negative (Negative); Leukocyte Negative Leu/uL (Negative); Nitrite Negative (Negative); Protein, Urine (Dipstick) Negative (Neg-Trace); RBC/HPF None Seen HPF (0-3); Specific Gravity, Urine 1.011 (1.002-1.036); Squamous Epithelial None Seen HPF (0-3); Urobilinogen Normal mg/dL (Less than 2); WBC/HPF 0-3 HPF (0-3); pH, Urine 6.5 (5.0-9.0)
[2022-08-28] MEDS ORDERED: Sodium Bicarb 50 MEQ/50 ML VIAL ONE (14:55)
[2022-08-28] MEDS ORDERED: Calcium Chloride 1 GM/10 ML Abboject SYRINGE ONE ×2 (14:55→14:56)
[2022-08-28 14:56] LABS: Urine Culture Reflex No No
[2022-08-28] MEDS ORDERED: Dextrose 5% in Water 1,000 ML IV PRN (15:13)
[2022-08-28] MEDS ORDERED: Dextrose 50% Abboject 50 ML SYRINGE SLOW IVP PRN (15:13)
[2022-08-28] MEDS ORDERED: Ondansetron PF 4 MG/2 ML Vial IVP PRN (15:13)
[2022-08-28] MEDS ORDERED: Glucagon 1 MG/ML KIT IM PRN (15:13)
[2022-08-28] MEDS ORDERED: LOKELMA 10 GM PACKET PO SCH (15:15)
[2022-08-28] MEDS: Sodium Chloride 0.9% 1,000 ML IV SCH (16:25)
[2022-08-28] MEDS: Aspirin 81 mg Enteric Coated Tablet PO SCH (23:24)
[2022-08-28] MEDS: QUEtiapine 25 MG TAB PO SCH (23:24)
[2022-08-28] MEDS: Heparin 5,000 UNITS/ML VIAL SC SCH (23:24)
[2022-08-28] MEDS: Atenolol 25 MG TAB PO SCH (23:24)
[2022-08-29] MEDS: Sodium Chloride 0.9% 1,000 ML IV SCH ×2 (00:29→12:56)
[2022-08-29 01:19] VITALS: BMI 28.5
[2022-08-29 01:37] LABS: Glucose 152 mg/dL (83-110)
[2022-08-29 05:44] LABS: #Basophils 0.1 thou/uL (0.0-0.2); #Eosinphils 0.3 thou/uL (0.0-0.7); #Monocytes 0.6 thou/uL (0.11-0.59); #Neutrophils 4.9 thou/uL (1.40-6.50); %Basophils 0.7 % (0.0-1.0); %Eosinophils 3.8 % (0.0-10.0); %Monocytes 8.9 % (0.0-10.0); %Neutrophils 69.3 % (42.0-75.0); Hemoglobin 10.9 g/dL (14.0-18.0); Mean Corpuscular HGB CONC 33.2 g/dL (32.0-36.0); Mean Corpuscular Volume 93.2 fl (78.0-98.0); Mean Platelet Volume 10.3 fL (7.4-10.4); Platelet Count 150 10x3/uL (130-400); RBC Distribution Width 15.1 % (11.5-14.5); Red Blood Cell (RBC) Count 3.52 mill/uL (4.70-6.10); White Blood Cell (WBC) Count 7.1 10x3/uL (4.8-10.8)
[2022-08-29 06:28] LABS: Anion Gap 18 mmol/L (10-20); BUN (Urea Nitrogen) 36 mg/dL (8.4-25.7); Calc. Creatinine Clearance 18 mL/min (70-130); Calcium 9.6 mg/dL (7.8-10.44); Carbon Dioxide 20 mmol/L (23-31); Chloride 103 mmol/L (98-107); Estimated GFR 13; Glucose 115 mg/dL (83-110); Potassium 4.9 mmol/L (3.5-5.1); Sodium 136 mmol/L (136-145)
[2022-08-29] MEDS: Atenolol 25 MG TAB PO SCH ×2 (09:03→20:46)
[2022-08-29] MEDS: Heparin 5,000 UNITS/ML VIAL SC SCH ×2 (09:03→20:46)
[2022-08-29] MEDS: Tamsulosin HCl 0.4 MG CAP PO SCH (09:03)
[2022-08-29] MEDS ORDERED: Melatonin 3 MG TAB PO SCH (20:30)
[2022-08-29] MEDS: Aspirin 81 mg Enteric Coated Tablet PO SCH (20:46)
[2022-08-29] MEDS: QUEtiapine 25 MG TAB PO SCH (20:46)
[2022-08-30] MEDS: Sodium Chloride 0.9% 1,000 ML IV SCH ×2 (00:15→08:55)
[2022-08-30 05:53] LABS: Calcium 9.1 mg/dL (7.8-10.44); Chloride 109 mmol/L (98-107); Potassium 4.7 mmol/L (3.5-5.1); Sodium 138 mmol/L (136-145)
[2022-08-30 06:04] LABS: Anion Gap 13 mmol/L (10-20); BUN (Urea Nitrogen) 36 mg/dL (8.4-25.7); Calc. Creatinine Clearance 18 mL/min (70-130); Carbon Dioxide 21 mmol/L (23-31); Estimated GFR 12
[2022-08-30 06:05] LABS: Glucose 54 mg/dL (83-110)
[2022-08-30] MEDS: Tamsulosin HCl 0.4 MG CAP PO SCH (08:48)
[2022-08-30] MEDS: Atenolol 25 MG TAB PO SCH ×2 (08:51→21:23)
[2022-08-30] MEDS: Heparin 5,000 UNITS/ML VIAL SC SCH ×2 (08:51→21:23)
[2022-08-30] MEDS: Dextrose 5%-Lactated Ringers 1,000 ML IV SCH ×2 (11:21→21:22)
[2022-08-30] MEDS: QUEtiapine 25 MG TAB PO SCH (21:23)
[2022-08-30] MEDS: Aspirin 81 mg Enteric Coated Tablet PO SCH (21:23)
[2022-08-31] MEDS: Dextrose 5%-Lactated Ringers 1,000 ML IV SCH ×2 (06:07→16:23)
[2022-08-31 08:25] LABS: #Basophils 0.1 thou/uL (0.0-0.2); #Eosinphils 0.4 thou/uL (0.0-0.7); #Monocytes 0.8 thou/uL (0.11-0.59); #Neutrophils 4.7 thou/uL (1.40-6.50); %Basophils 0.9 % (0.0-1.0); %Eosinophils 5.1 % (0.0-10.0); %Lymphocytes 19.9 % (21.0-51.0); %Monocytes 10.6 % (0.0-10.0); %Neutrophils 63.2 % (42.0-75.0); Mean Corpuscular HGB CONC 31.3 g/dL (32.0-36.0); Mean Corpuscular Hemoglobin 31.1 pg (27.0-31.0); Mean Corpuscular Volume 99.4 fl (78.0-98.0); Mean Platelet Volume 10.2 fL (7.4-10.4); Platelet Count 145 10x3/uL (130-400); RBC Distribution Width 15.3 % (11.5-14.5); Red Blood Cell (RBC) Count 3.54 mill/uL (4.70-6.10); White Blood Cell (WBC) Count 7.4 10x3/uL (4.8-10.8)
[2022-08-31 08:49] LABS: Anion Gap 14 mmol/L (10-20); BUN (Urea Nitrogen) 31 mg/dL (8.4-25.7); Calc. Creatinine Clearance 20 mL/min (70-130); Calcium 9.1 mg/dL (7.8-10.44); Carbon Dioxide 21 mmol/L (23-31); Chloride 108 mmol/L (98-107); Estimated GFR 14; Glucose 106 mg/dL (83-110); Potassium 5.2 mmol/L (3.5-5.1); Sodium 138 mmol/L (136-145)
[2022-08-31] MEDS: Atenolol 25 MG TAB PO SCH ×2 (11:05→21:27)
[2022-08-31] MEDS: Heparin 5,000 UNITS/ML VIAL SC SCH ×2 (11:06→21:26)
[2022-08-31] MEDS: Tamsulosin HCl 0.4 MG CAP PO SCH (11:06)
[2022-08-31] MEDS: HumaLOG 300 UNITS/3 ML VIAL SC PRN ×2 (12:57→18:39)
[2022-08-31] MEDS: Aspirin 81 mg Enteric Coated Tablet PO SCH (21:26)
[2022-08-31] MEDS: QUEtiapine 25 MG TAB PO SCH (21:26)
[2022-08-31] MEDS: Melatonin 3 MG TAB PO PRN (21:30)
[2022-09-01] MEDS: Dextrose 5%-Lactated Ringers 1,000 ML IV SCH ×2 (03:29→13:52)
[2022-09-01 06:21] LABS: Anion Gap 11 mmol/L (10-20); BUN (Urea Nitrogen) 27 mg/dL (8.4-25.7); Calc. Creatinine Clearance 23 mL/min (70-130); Calcium 8.8 mg/dL (7.8-10.44); Carbon Dioxide 20 mmol/L (23-31); Chloride 109 mmol/L (98-107); Estimated GFR 16; Glucose 129 mg/dL (83-110); Potassium 4.5 mmol/L (3.5-5.1); Sodium 135 mmol/L (136-145)
[2022-09-01] MEDS: Atenolol 25 MG TAB PO SCH ×2 (10:57→20:20)
[2022-09-01] MEDS: Heparin 5,000 UNITS/ML VIAL SC SCH ×3 (10:58→20:21)
[2022-09-01] MEDS: Tamsulosin HCl 0.4 MG CAP PO SCH (10:59)
[2022-09-01] MEDS ORDERED: Polyethylene Glycol 3350 17 GM Packet PO PRN (15:07)
[2022-09-01] MEDS: Aspirin 81 mg Enteric Coated Tablet PO SCH (20:20)
[2022-09-01] MEDS: Melatonin 3 MG TAB PO PRN (20:21)
[2022-09-01] MEDS: QUEtiapine 25 MG TAB PO SCH (20:21)
[2022-09-02] MEDS: Dextrose 5%-Lactated Ringers 1,000 ML IV SCH ×3 (07:50→18:14)
[2022-09-02] MEDS: Acetaminophen 325 MG TAB PO PRN (08:07)
[2022-09-02] MEDS: Atenolol 25 MG TAB PO SCH ×2 (08:10→21:41)
[2022-09-02] MEDS: Tamsulosin HCl 0.4 MG CAP PO SCH (08:10)
[2022-09-02] MEDS: Polyethylene Glycol 3350 17 GM Packet PO SCH (08:10)
[2022-09-02] MEDS: Heparin 5,000 UNITS/ML VIAL SC SCH ×2 (10:06→21:41)
[2022-09-02] MEDS: HumaLOG 300 UNITS/3 ML VIAL SC PRN (18:17)
[2022-09-02] MEDS: Aspirin 81 mg Enteric Coated Tablet PO SCH (21:41)
[2022-09-02] MEDS: QUEtiapine 25 MG TAB PO SCH (21:42)
[2022-09-03] MEDS: Artificial Tear Sol 15 ML BOT EA EYE PRN ×2 (01:44→09:43)
[2022-09-03] MEDS: Dextrose 5%-Lactated Ringers 1,000 ML IV SCH ×3 (06:40→20:40)
[2022-09-03 08:48] LABS: #Basophils 0.1 thou/uL (0.0-0.2); #Eosinphils 0.3 thou/uL (0.0-0.7); #Monocytes 0.8 thou/uL (0.11-0.59); #Neutrophils 4.6 thou/uL (1.40-6.50); %Basophils 0.8 % (0.0-1.0); %Lymphocytes 18.7 % (21.0-51.0); %Monocytes 11.5 % (0.0-10.0); %Neutrophils 64.7 % (42.0-75.0); Hemoglobin 10.3 g/dL (14.0-18.0); Mean Corpuscular HGB CONC 33.6 g/dL (32.0-36.0); Mean Corpuscular Hemoglobin 31.3 pg (27.0-31.0); Mean Corpuscular Volume 93.3 fl (78.0-98.0); Platelet Count 138 10x3/uL (130-400); RBC Distribution Width 15.1 % (11.5-14.5); Red Blood Cell (RBC) Count 3.29 mill/uL (4.70-6.10); White Blood Cell (WBC) Count 7.1 10x3/uL (4.8-10.8)
[2022-09-03 09:13] LABS: Anion Gap 15 mmol/L (10-20); BUN (Urea Nitrogen) 25 mg/dL (8.4-25.7); Calc. Creatinine Clearance 26 mL/min (70-130); Calcium 9.4 mg/dL (7.8-10.44); Carbon Dioxide 20 mmol/L (23-31); Chloride 109 mmol/L (98-107); Estimated GFR 19; Glucose 98 mg/dL (83-110); Potassium 4.9 mmol/L (3.5-5.1); Sodium 139 mmol/L (136-145)
[2022-09-03] MEDS: Atenolol 25 MG TAB PO SCH ×2 (09:40→20:39)
[2022-09-03] MEDS: Heparin 5,000 UNITS/ML VIAL SC SCH ×2 (09:40→20:47)
[2022-09-03] MEDS: Tamsulosin HCl 0.4 MG CAP PO SCH (09:40)
[2022-09-03] MEDS: Polyethylene Glycol 3350 17 GM Packet PO SCH (09:40)
[2022-09-03] MEDS: Acetaminophen 325 MG TAB PO PRN (09:47)
[2022-09-03] MEDS: Aspirin 81 mg Enteric Coated Tablet PO SCH (20:38)
[2022-09-03] MEDS: QUEtiapine 25 MG TAB PO SCH (20:39)
[2022-09-03] MEDS: Melatonin 3 MG TAB PO PRN (23:36)
[2022-09-04] MEDS: Dextrose 5%-Lactated Ringers 1,000 ML IV SCH (06:55)
[2022-09-04] MEDS: Atenolol 25 MG TAB PO SCH ×2 (08:36→21:53)
[2022-09-04] MEDS: Heparin 5,000 UNITS/ML VIAL SC SCH ×2 (08:36→21:55)
[2022-09-04] MEDS: Tamsulosin HCl 0.4 MG CAP PO SCH (08:36)
[2022-09-04] MEDS: Polyethylene Glycol 3350 17 GM Packet PO SCH (08:37)
[2022-09-04] MEDS: Ciprofloxacin 0.3% Ophth Soln 2.5 ml Bottle EA EYE SCH ×3 (13:39→21:56)
[2022-09-04] MEDS: Gabapentin 100 MG CAP PO SCH ×2 (16:30→21:52)
[2022-09-04 18:19] LABS: #Basophils 0.1 thou/uL (0.0-0.2); #Eosinphils 0.3 thou/uL (0.0-0.7); #Monocytes 0.7 thou/uL (0.11-0.59); #Neutrophils 4.9 thou/uL (1.40-6.50); %Basophils 0.9 % (0.0-1.0); %Eosinophils 3.9 % (0.0-10.0); %Lymphocytes 14.2 % (21.0-51.0); %Monocytes 9.9 % (0.0-10.0); %Neutrophils 70.8 % (42.0-75.0); Hemoglobin 10.1 g/dL (14.0-18.0); Mean Corpuscular HGB CONC 32.7 g/dL (32.0-36.0); Mean Corpuscular Hemoglobin 31.3 pg (27.0-31.0); Mean Corpuscular Volume 95.7 fl (78.0-98.0); Mean Platelet Volume 10.4 fL (7.4-10.4); Platelet Count 144 10x3/uL (130-400); RBC Distribution Width 15.1 % (11.5-14.5); Red Blood Cell (RBC) Count 3.23 mill/uL (4.70-6.10); White Blood Cell (WBC) Count 6.9 10x3/uL (4.8-10.8)
[2022-09-04 18:44] LABS: Anion Gap 13 mmol/L (10-20); BUN (Urea Nitrogen) 24 mg/dL (8.4-25.7); Calc. Creatinine Clearance 30 mL/min (70-130); Calcium 9.1 mg/dL (7.8-10.44); Carbon Dioxide 18 mmol/L (23-31); Chloride 111 mmol/L (98-107); Estimated GFR 22; Glucose 127 mg/dL (83-110); Potassium 4.7 mmol/L (3.5-5.1); Sodium 137 mmol/L (136-145)
[2022-09-04] MEDS: Atorvastatin Calcium 10 MG TAB PO SCH (21:52)
[2022-09-04] MEDS: QUEtiapine 25 MG TAB PO SCH (21:53)
[2022-09-04] MEDS: Aspirin 81 mg Enteric Coated Tablet PO SCH (21:53)
[2022-09-05] MEDS: Dextrose 5%-Lactated Ringers 1,000 ML IV SCH ×4 (00:05→20:52)
[2022-09-05] MEDS: Clopidogrel Bisulfate 75 MG TAB PO SCH (09:14)
[2022-09-05] MEDS: Tamsulosin HCl 0.4 MG CAP PO SCH (09:14)
[2022-09-05] MEDS: Gabapentin 100 MG CAP PO SCH ×3 (09:15→20:54)
[2022-09-05] MEDS: Atenolol 25 MG TAB PO SCH ×2 (09:15→20:53)
[2022-09-05] MEDS: Heparin 5,000 UNITS/ML VIAL SC SCH (09:16)
[2022-09-05] MEDS: Polyethylene Glycol 3350 17 GM Packet PO SCH (09:17)
[2022-09-05] MEDS: Ciprofloxacin 0.3% Ophth Soln 2.5 ml Bottle EA EYE SCH ×4 (09:19→20:55)
[2022-09-05] MEDS: Acetaminophen 325 MG TAB PO PRN (18:49)
[2022-09-05] MEDS: QUEtiapine 25 MG TAB PO SCH (20:53)
[2022-09-05] MEDS: Atorvastatin Calcium 10 MG TAB PO SCH (20:53)
[2022-09-05] MEDS: Aspirin 81 mg Enteric Coated Tablet PO SCH (20:53)
[2022-09-06] MEDS: Dextrose 5%-Lactated Ringers 1,000 ML IV SCH ×2 (06:00→15:25)
[2022-09-06] MEDS: Tamsulosin HCl 0.4 MG CAP PO SCH (09:41)
[2022-09-06] MEDS: Clopidogrel Bisulfate 75 MG TAB PO SCH (09:41)
[2022-09-06] MEDS: Gabapentin 100 MG CAP PO SCH ×3 (09:41→20:09)
[2022-09-06] MEDS: Polyethylene Glycol 3350 17 GM Packet PO SCH (09:42)
[2022-09-06] MEDS: Atenolol 25 MG TAB PO SCH ×2 (09:42→20:10)
[2022-09-06] MEDS: Ciprofloxacin 0.3% Ophth Soln 2.5 ml Bottle EA EYE SCH ×4 (09:42→20:14)
[2022-09-06] MEDS: Aspirin 81 mg Enteric Coated Tablet PO SCH (20:09)
[2022-09-06] MEDS: Atorvastatin Calcium 10 MG TAB PO SCH (20:10)
[2022-09-06] MEDS: QUEtiapine 25 MG TAB PO SCH (20:10)
[2022-09-07] MEDS: Dextrose 5%-Lactated Ringers 1,000 ML IV SCH ×2 (02:25→21:01)
[2022-09-07] MEDS: Tamsulosin HCl 0.4 MG CAP PO SCH (08:50)
[2022-09-07] MEDS: Atenolol 25 MG TAB PO SCH ×2 (08:50→21:02)
[2022-09-07] MEDS: Clopidogrel Bisulfate 75 MG TAB PO SCH (08:50)
[2022-09-07] MEDS: Gabapentin 100 MG CAP PO SCH ×3 (08:50→21:01)
[2022-09-07] MEDS: Polyethylene Glycol 3350 17 GM Packet PO SCH (08:51)
[2022-09-07] MEDS: Ciprofloxacin 0.3% Ophth Soln 2.5 ml Bottle EA EYE SCH ×2 (08:52→13:10)
[2022-09-07] MEDS: QUEtiapine 25 MG TAB PO SCH (21:02)
[2022-09-07] MEDS: Atorvastatin Calcium 10 MG TAB PO SCH (21:02)
[2022-09-07] MEDS: Acetaminophen 325 MG TAB PO PRN (21:02)
[2022-09-07] MEDS: Aspirin 81 mg Enteric Coated Tablet PO SCH (21:03)
[2022-09-08] MEDS: Tamsulosin HCl 0.4 MG CAP PO SCH (08:06)
[2022-09-08] MEDS: Gabapentin 100 MG CAP PO SCH ×3 (08:06→20:17)
[2022-09-08] MEDS: Clopidogrel Bisulfate 75 MG TAB PO SCH (08:06)
[2022-09-08] MEDS: Polyethylene Glycol 3350 17 GM Packet PO SCH (08:07)
[2022-09-08] MEDS: Atenolol 25 MG TAB PO SCH ×3 (08:07→20:47)
[2022-09-08 15:13] LABS: Anion Gap 13 mmol/L (10-20); BUN (Urea Nitrogen) 22 mg/dL (8.4-25.7); Calc. Creatinine Clearance 36 mL/min (70-130); Calcium 9.1 mg/dL (7.8-10.44); Carbon Dioxide 17 mmol/L (23-31); Chloride 109 mmol/L (98-107); Estimated GFR 28; Glucose 174 mg/dL (83-110); Potassium 4.2 mmol/L (3.5-5.1); Sodium 135 mmol/L (136-145)
[2022-09-08] MEDS: Aspirin 81 mg Enteric Coated Tablet PO SCH (20:17)
[2022-09-08] MEDS: Atorvastatin Calcium 10 MG TAB PO SCH (20:17)
[2022-09-08] MEDS: QUEtiapine 25 MG TAB PO SCH (20:17)
[2022-09-08] MEDS: Mirtazapine 15 MG Soltab PO SCH (20:17)
[2022-09-09] MEDS: Atenolol 25 MG TAB PO SCH ×2 (09:04→20:10)
[2022-09-09] MEDS: Polyethylene Glycol 3350 17 GM Packet PO SCH (09:04)
[2022-09-09] MEDS: Tamsulosin HCl 0.4 MG CAP PO SCH (09:04)
[2022-09-09] MEDS: Clopidogrel Bisulfate 75 MG TAB PO SCH (09:04)
[2022-09-09] MEDS: Gabapentin 100 MG CAP PO SCH ×3 (09:04→20:09)
[2022-09-09] MEDS: Mirtazapine 15 MG Soltab PO SCH (20:10)
[2022-09-09] MEDS: QUEtiapine 25 MG TAB PO SCH (20:10)
[2022-09-09] MEDS: Aspirin 81 mg Enteric Coated Tablet PO SCH (20:10)
[2022-09-09] MEDS: Atorvastatin Calcium 10 MG TAB PO SCH (20:10)
[2022-09-10] MEDS: Tamsulosin HCl 0.4 MG CAP PO SCH (09:11)
[2022-09-10] MEDS: Polyethylene Glycol 3350 17 GM Packet PO SCH (09:11)
[2022-09-10] MEDS: Atenolol 25 MG TAB PO SCH ×2 (09:11→21:23)
[2022-09-10] MEDS: Clopidogrel Bisulfate 75 MG TAB PO SCH (09:11)
[2022-09-10] MEDS: Gabapentin 100 MG CAP PO SCH ×3 (09:11→21:23)
[2022-09-10] MEDS: Mirtazapine 15 MG Soltab PO SCH (21:23)
[2022-09-10] MEDS: Aspirin 81 mg Enteric Coated Tablet PO SCH (21:23)
[2022-09-10] MEDS: QUEtiapine 25 MG TAB PO SCH (21:23)
[2022-09-10] MEDS: Atorvastatin Calcium 10 MG TAB PO SCH (21:24)
[2022-09-11] MEDS: Polyethylene Glycol 3350 17 GM Packet PO SCH (09:57)
[2022-09-11] MEDS: Gabapentin 100 MG CAP PO SCH ×2 (09:57→14:33)
[2022-09-11] MEDS: Tamsulosin HCl 0.4 MG CAP PO SCH (09:57)
[2022-09-11] MEDS: Atenolol 25 MG TAB PO SCH (09:58)
[2022-09-11] MEDS: Clopidogrel Bisulfate 75 MG TAB PO SCH (09:58)
[2022-09-11 12:56] VITALS: BP 163/82; TEMP 98.3
[2022-09-11] MEDS ORDERED: Mirtazapine 15 MG Soltab PO SCH (21:00)
== END 2022-09-11 18:02 | DRG 682 ==
LOC: ERS 13:10 → ERHOLD 15:10 → 2NO 22:04 → T4-A 09-03 18:38
PROVIDERS: ADMIT Internal Medicine; ATTEND Internal Medicine
DX: N17.9 Acute kidney failure, unspecified (principal); G93.41 Metabolic encephalopathy; I13.0 Hypertensive heart and chronic kidney disease with heart failure and stage 1 through stage 4 chronic kidney disease, or unspecified chronic kidney disease; I25.810 Atherosclerosis of coronary artery bypass graft(s) without angina pectoris; I50.20 Unspecified systolic (congestive) heart failure; I25.10 Atherosclerotic heart disease of native coronary artery without angina pectoris; Z66 Do not resuscitate; E86.1 Hypovolemia; E87.5 Hyperkalemia; Z51.5 Encounter for palliative care; E78.5 Hyperlipidemia, unspecified; N40.0 Benign prostatic hyperplasia without lower urinary tract symptoms; F03.90 Unspecified dementia, unspecified severity, without behavioral disturbance, psychotic disturbance, mood disturbance, and anxiety; R53.1 Weakness; E11.649 Type 2 diabetes mellitus with hypoglycemia without coma; E11.40 Type 2 diabetes mellitus with diabetic neuropathy, unspecified; E11.22 Type 2 diabetes mellitus with diabetic chronic kidney disease; D63.1 Anemia in chronic kidney disease; N18.9 Chronic kidney disease, unspecified; E11.51 Type 2 diabetes mellitus with diabetic peripheral angiopathy without gangrene; H10.9 Unspecified conjunctivitis; R62.7 Adult failure to thrive; Z68.29 Body mass index [BMI] 29.0-29.9, adult; Z88.0 Allergy status to penicillin; Z88.6 Allergy status to analgesic agent; Z88.8 Allergy status to other drugs, medicaments and biological substances; Z79.84 Long term (current) use of oral hypoglycemic drugs; Z79.899 Other long term (current) drug therapy; Z91.048 Other nonmedicinal substance allergy status; Z79.82 Long term (current) use of aspirin; Z87.891 Personal history of nicotine dependence; Z95.1 Presence of aortocoronary bypass graft; Z90.49 Acquired absence of other specified parts of digestive tract; Z90.89 Acquired absence of other organs; Z98.890 Other specified postprocedural states; I73.9 Peripheral vascular disease, unspecified; E78.00 Pure hypercholesterolemia, unspecified; E11.59 Type 2 diabetes mellitus with other circulatory complications; Z96.653 Presence of artificial knee joint, bilateral; Z98.49 Cataract extraction status, unspecified eye; Z88.1 Allergy status to other antibiotic agents
CPT/HCPCS: 36415; 36416; 70450; 71045; 76770; 80048; 80053; 81001; 82550; 82553; 83690; 83735; 83880; 84484; 85025; 93005; 93306; 93798; 96361; 96374; 96375; 96376; G0378; J0360; J1644; J1650; J1815; J1940; J3475; J7050; J7070; J7999

== ENCOUNTER 2022-09-19 09:51 | Inpatient (IN) | payer MEDICARE, BC ==
[2022-09-19 10:33] LABS: Hematocrit 38.5 % (42.0-52.0); Hemoglobin 12.4 g/dL (14.0-18.0); Mean Corpuscular HGB CONC 32.2 g/dL (32.0-36.0); Mean Corpuscular Hemoglobin 30.4 pg (27.0-31.0); Mean Corpuscular Volume 94.4 fl (78.0-98.0); Mean Platelet Volume 11.6 fL (7.4-10.4); Platelet Count 282 10x3/uL (130-400); RBC Distribution Width 15.4 % (11.5-14.5); Red Blood Cell (RBC) Count 4.08 mill/uL (4.70-6.10); White Blood Cell (WBC) Count 10.3 10x3/uL (4.8-10.8)
[2022-09-19 10:46] LABS: Delete Auto Diff?? YES; Manual Diff?? YES
[2022-09-19 10:48] LABS: Analyzer IN Cardio ER; Base Excess (BEa) -10.2 mEq/L (-2.0 to +3.0); Calcium, Ionized (arterial) 1.25 mmol/L (1.12-1.30); Carboxyhemoglobin (COHb) 0.3 gm% (0.0-3.0); Hematocrit-ABG 36 % (42.0-52.0); Hemoglobin (Hb) 12.2 g/dL (14.0-18.0); O2 Tension (PaO2), arterial 74.4 mmHg (> 70.0); Potassium - ABG Lab 3.86 mmol/L (3.70-5.30); pH, Arterial 7.391 (7.35-7.45)
[2022-09-19 10:50] LABS: Actual Bicarbonate (HCO3a) 12.7 mEq/L (22-28); CO2 Tension 21.4 mmHg (35.0-45.0); Puncture Site RRA
[2022-09-19 10:56] LABS: INR-International Normal Ratio 1.5; PTT 30.9 sec (22.9-36.1); Prothrombin Time 19.1 sec (12.0-14.7)
[2022-09-19 11:01] LABS: ALT (SGPT) 28 U/L (8-55); AST (SGOT) 39 U/L (5-34); Albumin 3.7 g/dL (3.4-4.8); Alkaline Phosphatase 143 U/L (40-110); Anion Gap 16 mmol/L (10-20); BUN (Urea Nitrogen) 89 mg/dL (8.4-25.7); Bilirubin, Total 1.3 mg/dL (0.2-1.2); CK (CPK) 1094 U/L (30-200); Calc. Creatinine Clearance 0 mL/min (70-130); Calcium 10.5 mg/dL (7.8-10.44); Carbon Dioxide 17 mmol/L (23-31); Chloride 125 mmol/L (98-107); Estimated GFR 13; Globulin 4.1 g/dL (2.4-3.5); Glucose 255 mg/dL (83-110); Lipase 31 U/L (8-78); Magnesium 2.4 mg/dL (1.6-2.6); Potassium 3.9 mmol/L (3.5-5.1); Protein, Total 7.8 g/dL (5.8-8.1)
[2022-09-19] MEDS ORDERED: Cefepime 2 GM VIAL ONE (11:07)
[2022-09-19 11:27] LABS: Sodium 154 mmol/L (136-145)
[2022-09-19] MEDS ORDERED: Vancomycin 1.5 GRAM/300 ML BAG 1.5 GM in Premix Bag 1 BAG IVPB SCH (11:30)
[2022-09-19 11:32] LABS: Band 17 % (5-11); Dohle Bodies SLIGHT; Eosinophils 3 % (0-10); Lymphocytes 30 % (21-51); Metamyelocyte 4 % (0-0); Monocytes 10 % (0-10); Neutrophil 29 % (42-75); Reactive Lymphocytes 4 % (0-10)
[2022-09-19 11:33] LABS: Platelet Adequacy Comment Platelets Normal
[2022-09-19 11:34] LABS: Large Platelets SLIGHT (None Seen)
[2022-09-19 11:35] LABS: Ovalocytes SLIGHT = 2-5 cells (100X) (0-1/hpf); Polychromasia SLIGHT = 2-3 cells (100X) (0-2/hpf)
[2022-09-19 11:43] LABS: CKMB 1.6 ng/mL (0-6.6)
[2022-09-19] MEDS ORDERED: Acetaminophen 650 MG Suppository ONE (12:07)
[2022-09-19] MEDS ORDERED: Aspirin 300 MG Suppository ONE (12:09)
[2022-09-19] MEDS ORDERED: [UNRECOGNIZED DRUG - REMARK] IVPB PRN (12:14)
[2022-09-19 12:29] LABS: Bacteria/HPF None Seen HPF (None Seen); Bilirubin Negative (Negative); Blood, Urine 1+ (Negative); CAUTI Indications for Culture Alt mental st,lethar; Clarity Clear (Clear); Glucose, Urine (Dipstick) Normal (Negative); Ketone, Urine Trace mg/dL (Negative); Leukocyte Negative Leu/uL (Negative); Nitrite Negative (Negative); Protein, Urine (Dipstick) 50 mg/dL (Neg-Trace); Squamous Epithelial None Seen HPF (0-3)
[2022-09-19 12:30] LABS: Urine Culture Reflex No No
[2022-09-19] MEDS ORDERED: Sodium Chloride 0.9% 1,000 ML IV SCH (12:30)
[2022-09-19] MEDS ORDERED: Vancomycin Dose by Levels Sliding Scale (Wt 71-99) FS SCH (12:45)
[2022-09-19] MEDS ORDERED: Cefepime 2 GM in Sodium Chloride 0.9% 100 ML IVPB SCH (13:00)
[2022-09-19 13:50] VITALS: BMI 31.3
[2022-09-19] MEDS ORDERED: metroNIDAZOLE 500 MG/100 ML BAG ONE (14:19)
[2022-09-19] MEDS ORDERED: Acetaminophen 325 MG TAB PO PRN (14:27)
[2022-09-19] MEDS ORDERED: Ondansetron PF 4 MG/2 ML Vial IVP PRN (14:27)
[2022-09-19 14:28] LABS: SARS-CoV-2 NAA Rapid Test DETECTED (NotDetected)
[2022-09-19] MEDS: metroNIDAZOLE 500 MG in Premix Bag 1 BAG IVPB SCH ×2 (14:36→21:34)
[2022-09-19] MEDS: Heparin 5,000 UNITS/ML VIAL SC SCH ×2 (18:25→21:34)
[2022-09-19] MEDS ORDERED: HumaLOG 300 UNITS/3 ML VIAL SC PRN ×2 (20:17)
[2022-09-19] MEDS ORDERED: Glucagon 1 MG/ML KIT IM PRN (20:17)
[2022-09-19] MEDS ORDERED: Dextrose 50% Abboject 50 ML SYRINGE SLOW IVP PRN (20:17)
[2022-09-19] MEDS ORDERED: Dextrose 5% in Water 1,000 ML IV PRN (20:17)
[2022-09-19] MEDS ORDERED: Ipratropium/Albuterol 3 ML NEB NEB PRN (20:57)
[2022-09-19 20:58] LABS: Anion Gap 11 mmol/L (10-20); BUN (Urea Nitrogen) 94 mg/dL (8.4-25.7); Calc. Creatinine Clearance 19 mL/min (70-130); Calcium 9.6 mg/dL (7.8-10.44); Carbon Dioxide 15 mmol/L (23-31); Chloride 134 mmol/L (98-107); Estimated GFR 14; Glucose 239 mg/dL (83-110); Potassium 3.8 mmol/L (3.5-5.1)
[2022-09-19] MEDS ORDERED: VANCOMYCIN 1.25 GM/250 ML BAG 1.25 GM in Premix Bag 1 BAG IVPB SCH (21:00)
[2022-09-19 21:14] LABS: Sodium 156 mmol/L (136-145)
[2022-09-19] MEDS: Atorvastatin Calcium 10 MG TAB PO SCH (21:35)
[2022-09-19] MEDS: Aspirin 81 mg Enteric Coated Tablet PO SCH (21:35)
[2022-09-19 22:13] LABS: Troponin I 1.016 ng/mL (< 0.028)
[2022-09-19] MEDS ORDERED: Sodium Bicarbonate 100 MEQ in Dextrose 5% in Water 1,000 ML IV SCH (22:30)
[2022-09-20 02:33] LABS: Anion Gap 23 mmol/L (10-20); BUN (Urea Nitrogen) 94 mg/dL (8.4-25.7); Calc. Creatinine Clearance 20 mL/min (70-130); Carbon Dioxide 10 mmol/L (23-31); Chloride 131 mmol/L (98-107); Estimated GFR 15; Glucose 249 mg/dL (83-110)
[2022-09-20 02:52] LABS: Sodium 160 mmol/L (136-145)
[2022-09-20] MEDS ORDERED: Sodium Bicarbonate 50 MEQ in Dextrose 5% in Water 1,000 ML IV SCH (03:15)
[2022-09-20 04:06] LABS: Calcium 9.1 mg/dL (7.8-10.44)
[2022-09-20] MEDS: metroNIDAZOLE 500 MG in Premix Bag 1 BAG IVPB SCH ×3 (06:04→23:58)
[2022-09-20] MEDS: Ascorbic Acid 500 mg Chewable Tablet PO SCH (08:44)
[2022-09-20] MEDS: Clopidogrel Bisulfate 75 MG TAB PO SCH (08:44)
[2022-09-20] MEDS: Cyanocobalamin (Vitamin B-12) 1,000 MCG TAB PO SCH (08:45)
[2022-09-20] MEDS: Tamsulosin HCl 0.4 MG CAP PO SCH (08:47)
[2022-09-20] MEDS: Multivitamin W/ Minerals 1 TAB PO SCH (08:47)
[2022-09-20] MEDS: Pantoprazole 40 MG VIAL IVP SCH ×2 (08:48→08:49)
[2022-09-20] MEDS: Zinc Sulfate 220 MG CAP PO SCH (08:48)
[2022-09-20] MEDS: Heparin 5,000 UNITS/ML VIAL SC SCH ×3 (08:52→20:48)
[2022-09-20 09:14] LABS: Anion Gap 15 mmol/L (10-20); BUN (Urea Nitrogen) 91 mg/dL (8.4-25.7); CK (CPK) 1662 U/L (30-200); Calc. Creatinine Clearance 21 mL/min (70-130); Calcium 9.2 mg/dL (7.8-10.44); Carbon Dioxide 18 mmol/L (23-31); Chloride 129 mmol/L (98-107); Estimated GFR 15; Glucose 290 mg/dL (83-110); Potassium 3.6 mmol/L (3.5-5.1)
[2022-09-20 09:34] LABS: Sodium 158 mmol/L (136-145)
[2022-09-20 11:14] VITALS: BP 121/65
[2022-09-20] MEDS: Cefepime 1 GM in Sodium Chloride 0.9% 100 ML IVPB SCH (11:53)
[2022-09-20] MEDS: Dextrose 5% in Water 1,000 ML IV SCH ×2 (11:53→20:48)
[2022-09-20 12:54] LABS: Creatinine, Urine 101.86 mg/dL (63-166)
[2022-09-20 13:35] LABS: Hematocrit 32.3 % (42.0-52.0); Hemoglobin 10.2 g/dL (14.0-18.0); Mean Corpuscular HGB CONC 31.6 g/dL (32.0-36.0); Mean Corpuscular Hemoglobin 29.9 pg (27.0-31.0); Mean Corpuscular Volume 94.7 fl (78.0-98.0); Mean Platelet Volume 11.9 fL (7.4-10.4); Platelet Count 210 10x3/uL (130-400); RBC Distribution Width 15.5 % (11.5-14.5); Red Blood Cell (RBC) Count 3.41 mill/uL (4.70-6.10)
[2022-09-20 13:39] LABS: Delete Auto Diff?? YES; Manual Diff?? YES
[2022-09-20 13:53] LABS: Vancomycin, Random 14.1 ug/mL (See Comment)
[2022-09-20] MEDS ORDERED: Vancomycin HCl 750 MG in Sodium Chloride 0.9% 250 ML 250 ML IVPB SCH (14:30)
[2022-09-20 14:40] LABS: Band 23 % (5-11); Eosinophils 1 % (0-10); Lymphocytes 10 % (21-51); Monocytes 16 % (0-10); Myelocyte 1 % (0-0); Neutrophil 46 % (42-75); Reactive Lymphocytes 1 % (0-10)
[2022-09-20 14:41] LABS: Hypochromia SLIGHT = 6-15 cells (100X) (0-5/hpf); Polychromasia SLIGHT = 2-3 cells (100X) (0-2/hpf)
[2022-09-20 14:54] LABS: Platelet Adequacy Comment Platelets Normal
[2022-09-20] MEDS: Aspirin 81 mg Enteric Coated Tablet PO SCH (20:18)
[2022-09-20] MEDS: Atorvastatin Calcium 10 MG TAB PO SCH (20:18)
[2022-09-21] MEDS: Dextrose 5% in Water 1,000 ML IV SCH ×3 (04:55→21:21)
[2022-09-21] MEDS: metroNIDAZOLE 500 MG in Premix Bag 1 BAG IVPB SCH ×3 (06:21→21:19)
[2022-09-21] MEDS: Pantoprazole 40 MG VIAL IVP SCH (10:04)
[2022-09-21] MEDS: Cyanocobalamin (Vitamin B-12) 1,000 MCG TAB PO SCH (10:05)
[2022-09-21] MEDS: Clopidogrel Bisulfate 75 MG TAB PO SCH (10:05)
[2022-09-21] MEDS: Albumin 25% 25 GM/100 ML BOT IVPB SCH ×3 (10:05→23:16)
[2022-09-21] MEDS: Heparin 5,000 UNITS/ML VIAL SC SCH ×3 (10:05→21:19)
[2022-09-21] MEDS: Multivitamin W/ Minerals 1 TAB PO SCH (10:05)
[2022-09-21] MEDS: Ascorbic Acid 500 mg Chewable Tablet PO SCH (10:05)
[2022-09-21] MEDS: Tamsulosin HCl 0.4 MG CAP PO SCH (10:06)
[2022-09-21] MEDS: Zinc Sulfate 220 MG CAP PO SCH (10:06)
[2022-09-21 10:24] LABS: Anion Gap 20 mmol/L (10-20); BUN (Urea Nitrogen) 74 mg/dL (8.4-25.7); Calc. Creatinine Clearance 26 mL/min (70-130); Calcium 9.2 mg/dL (7.8-10.44); Carbon Dioxide 15 mmol/L (23-31); Chloride 123 mmol/L (98-107); Estimated GFR 20; Glucose 257 mg/dL (83-110)
[2022-09-21 10:28] LABS: Sodium 154 mmol/L (136-145)
[2022-09-21 10:43] LABS: Troponin I 0.619 ng/mL (< 0.028)
[2022-09-21] MEDS: Cefepime 1 GM in Sodium Chloride 0.9% 100 ML IVPB SCH (11:35)
[2022-09-21] MEDS: Lorazepam 2 MG/ML VIAL SLOW IVP PRN (13:52)
[2022-09-21 14:43] LABS: Vancomycin, Random 14.5 ug/mL (See Comment)
[2022-09-21] MEDS: Aspirin 81 mg Enteric Coated Tablet PO SCH (19:31)
[2022-09-21] MEDS: Atorvastatin Calcium 10 MG TAB PO SCH (19:32)
[2022-09-21] MEDS: Acetaminophen 650 MG Suppository PR PRN (23:59)
[2022-09-22] MEDS: Ascorbic Acid 500 mg Chewable Tablet PO SCH (01:26)
[2022-09-22 03:49] LABS: #Eosinphils 0.2 thou/uL (0.0-0.7); #Monocytes 0.8 thou/uL (0.11-0.59); #Neutrophils 5.1 thou/uL (1.40-6.50); %Basophils 0.4 % (0.0-1.0); %Eosinophils 2.1 % (0.0-10.0); %Lymphocytes 16.2 % (21.0-51.0); %Monocytes 10.6 % (0.0-10.0); Hematocrit 28.2 % (42.0-52.0); Hemoglobin 9.3 g/dL (14.0-18.0); Mean Corpuscular Hemoglobin 30.5 pg (27.0-31.0); Mean Corpuscular Volume 92.5 fl (78.0-98.0); Mean Platelet Volume 11.5 fL (7.4-10.4); Platelet Count 184 10x3/uL (130-400); RBC Distribution Width 15.5 % (11.5-14.5); Red Blood Cell (RBC) Count 3.05 mill/uL (4.70-6.10); White Blood Cell (WBC) Count 7.2 10x3/uL (4.8-10.8)
[2022-09-22 04:14] LABS: Anion Gap 15 mmol/L (10-20); BUN (Urea Nitrogen) 60 mg/dL (8.4-25.7); Calc. Creatinine Clearance 29 mL/min (70-130); Calcium 9.2 mg/dL (7.8-10.44); Carbon Dioxide 18 mmol/L (23-31); Chloride 123 mmol/L (98-107); Estimated GFR 23; Glucose 252 mg/dL (83-110); Potassium 3.8 mmol/L (3.5-5.1)
[2022-09-22 04:18] LABS: Sodium 152 mmol/L (136-145)
[2022-09-22] MEDS: Dextrose 5% in Water 1,000 ML IV SCH (04:24)
[2022-09-22] MEDS: Acetaminophen 650 MG Suppository PR PRN (04:25)
[2022-09-22] MEDS: metroNIDAZOLE 500 MG in Premix Bag 1 BAG IVPB SCH (05:32)
[2022-09-22] MEDS: Albumin 25% 25 GM/100 ML BOT IVPB SCH (05:32)
[2022-09-22] MEDS ORDERED: Dextrose 5% in Water 1,000 ML IV SCH (06:43)
[2022-09-22 07:27] VITALS: TEMP 100
[2022-09-22] MEDS: Heparin 5,000 UNITS/ML VIAL SC SCH (08:05)
[2022-09-22] MEDS: Lorazepam 2 MG/ML VIAL SLOW IVP PRN (08:05)
[2022-09-22] MEDS: Pantoprazole 40 MG VIAL IVP SCH (08:05)
[2022-09-22] MEDS: Cyanocobalamin (Vitamin B-12) 1,000 MCG TAB PO SCH (08:31)
[2022-09-22] MEDS: Clopidogrel Bisulfate 75 MG TAB PO SCH (08:31)
[2022-09-22] MEDS: Tamsulosin HCl 0.4 MG CAP PO SCH (08:32)
[2022-09-22] MEDS: Zinc Sulfate 220 MG CAP PO SCH (08:32)
[2022-09-22] MEDS: Multivitamin W/ Minerals 1 TAB PO SCH (08:32)
[2022-09-22] MEDS ORDERED: Morphine 4 MG/ML VIAL SLOW IVP SCH (09:28)
[2022-09-22] MEDS ORDERED: Lorazepam 2 MG/ML VIAL SLOW IVP SCH (09:30)
[2022-09-22] MEDS ORDERED: Morphine 4 MG/ML VIAL SLOW IVP PRN ×2 (09:32→09:33)
[2022-09-22] MEDS ORDERED: Lorazepam 2 MG/ML VIAL SLOW IVP PRN (09:32)
== END 2022-09-22 11:01 | disposition hospice, inpatient (51) | DRG 871 ==
LOC: ERS 09:51 → ERHOLD 12:15 → IMCU/EMU 16:56
PROVIDERS: ADMIT Internal Medicine; ATTEND Internal Medicine
PROC: 4A033R1 Measurement of Arterial Saturation, Peripheral, Percutaneous Approach (ICD-10-PCS; principal; 2022-09-19)
PROC: 3E03329 Introduction of Other Anti-infective into Peripheral Vein, Percutaneous Approach (ICD-10-PCS; 2022-09-19)
PROC: 8E0ZXY6 Isolation (ICD-10-PCS; 2022-09-19)
PROC: 30233J1 Transfusion of Nonautologous Serum Albumin into Peripheral Vein, Percutaneous Approach (ICD-10-PCS; 2022-09-21)
DX: A41.9 Sepsis, unspecified organism (principal); I21.A1 Myocardial infarction type 2; U07.1 COVID-19; J69.0 Pneumonitis due to inhalation of food and vomit; R65.21 Severe sepsis with septic shock; R57.1 Hypovolemic shock; N17.9 Acute kidney failure, unspecified; E87.0 Hyperosmolality and hypernatremia; I13.0 Hypertensive heart and chronic kidney disease with heart failure and stage 1 through stage 4 chronic kidney disease, or unspecified chronic kidney disease; M62.82 Rhabdomyolysis; E46 Unspecified protein-calorie malnutrition; E87.20 Acidosis, unspecified; N18.4 Chronic kidney disease, stage 4 (severe); G93.40 Encephalopathy, unspecified; I50.32 Chronic diastolic (congestive) heart failure; Z51.5 Encounter for palliative care; Z66 Do not resuscitate; F03.90 Unspecified dementia, unspecified severity, without behavioral disturbance, psychotic disturbance, mood disturbance, and anxiety; E11.22 Type 2 diabetes mellitus with diabetic chronic kidney disease; N40.0 Benign prostatic hyperplasia without lower urinary tract symptoms; I25.10 Atherosclerotic heart disease of native coronary artery without angina pectoris; E11.51 Type 2 diabetes mellitus with diabetic peripheral angiopathy without gangrene; R62.7 Adult failure to thrive; E86.0 Dehydration; Z90.49 Acquired absence of other specified parts of digestive tract; Z90.89 Acquired absence of other organs; Z88.0 Allergy status to penicillin; Z88.8 Allergy status to other drugs, medicaments and biological substances; Z88.6 Allergy status to analgesic agent; Z91.048 Other nonmedicinal substance allergy status; Z79.899 Other long term (current) drug therapy; Z79.82 Long term (current) use of aspirin; Z98.890 Other specified postprocedural states; Z68.31 Body mass index [BMI] 31.0-31.9, adult; Z95.1 Presence of aortocoronary bypass graft
CPT/HCPCS: 36415; 36416; 36600; 51701; 70450; 71045; 74176; 80048; 80053; 80202; 81001; 82550; 82553; 82570; 82805; 83605; 83690; 83735; 83880; 84145; 84300; 84443; 84484; 85025; 85610; 85730; 87040; 87070; 87081; 87086; 87205; 93005; 96361; 96365; 96366; 96367; C9113; J0692; J1644; J1815; J2060; J2270; J3370; J3490; J7050; J7070; P9047

== ENCOUNTER 2022-09-22 10:59 | Inpatient (IN) | payer OTHER ==
[2022-09-22] MEDS ORDERED: Acetaminophen 650 MG Suppository PR PRN (12:00)
[2022-09-22] MEDS ORDERED: Haloperidol Lactate 5 MG/ML VIAL SLOW IVP PRN (12:00)
[2022-09-22] MEDS ORDERED: Ondansetron PF 4 MG/2 ML Vial IVP PRN (12:00)
[2022-09-22 12:01] VITALS: BMI 32.7
[2022-09-22] MEDS ORDERED: Bisacodyl 10 MG SUPP PR PRN (12:02)
[2022-09-22] MEDS ORDERED: Glycopyrrolate 0.4 MG/ 2 ML VIAL SLOW IVP PRN (12:02)
[2022-09-22] MEDS: Scopolamine 1.5 mg/72 hour Patch TOP PRN (12:13)
[2022-09-22] MEDS: Morphine 4 MG/ML VIAL SLOW IVP PRN ×3 (12:14→17:31)
[2022-09-22] MEDS: GLYCOPYRROLATE/PF 0.2 MG/ML VIAL SLOW IVP PRN ×2 (14:20→20:59)
[2022-09-23] MEDS: Morphine 4 MG/ML VIAL SLOW IVP PRN ×6 (00:16→21:26)
[2022-09-23] MEDS: GLYCOPYRROLATE/PF 0.2 MG/ML VIAL SLOW IVP PRN ×2 (03:41→15:00)
[2022-09-23] MEDS: Lorazepam 2 MG/ML VIAL SLOW IVP PRN (18:26)
[2022-09-24] MEDS: Morphine 4 MG/ML VIAL SLOW IVP PRN ×8 (01:18→18:15)
[2022-09-24] MEDS: Lorazepam 2 MG/ML VIAL SLOW IVP PRN ×5 (01:26→20:12)
[2022-09-25] MEDS ORDERED: Haloperidol Lactate 5 MG/ML VIAL SLOW IVP SCH (00:15)
[2022-09-25] MEDS: Haloperidol Lactate 5 MG/ML VIAL SLOW IVP SCH ×2 (08:50→20:43)
[2022-09-25] MEDS: Morphine 4 MG/ML VIAL SLOW IVP PRN ×3 (09:04→15:48)
[2022-09-25] MEDS: Lorazepam 2 MG/ML VIAL SLOW IVP PRN (09:11)
[2022-09-25] MEDS: Scopolamine 1.5 mg/72 hour Patch TOP PRN (15:48)
[2022-09-26] MEDS: Morphine 4 MG/ML VIAL SLOW IVP PRN ×6 (03:20→22:52)
[2022-09-26] MEDS: Lorazepam 2 MG/ML VIAL SLOW IVP PRN ×2 (05:45→16:20)
[2022-09-26] MEDS: Haloperidol Lactate 5 MG/ML VIAL SLOW IVP SCH ×2 (09:15→22:29)
[2022-09-27] MEDS: Lorazepam 2 MG/ML VIAL SLOW IVP PRN ×2 (03:17→15:49)
[2022-09-27] MEDS: Morphine 4 MG/ML VIAL SLOW IVP PRN ×5 (03:18→19:58)
[2022-09-27 07:52] VITALS: BP 104/65; TEMP 98.5
[2022-09-27] MEDS: Haloperidol Lactate 5 MG/ML VIAL SLOW IVP SCH ×2 (09:27→20:01)
== END 2022-09-27 20:43 | disposition expired | DRG 951 ==
LOC: 2NO 10:59 → IMCU/EMU 11:15 → T4-B 17:43
PROVIDERS: ADMIT Family Medicine; ATTEND Family Medicine
DX: Z51.5 Encounter for palliative care (principal); A41.9 Sepsis, unspecified organism; U07.1 COVID-19; J69.0 Pneumonitis due to inhalation of food and vomit; R63.0 Anorexia; Z66 Do not resuscitate; E87.0 Hyperosmolality and hypernatremia; R13.10 Dysphagia, unspecified; F03.90 Unspecified dementia, unspecified severity, without behavioral disturbance, psychotic disturbance, mood disturbance, and anxiety; I11.0 Hypertensive heart disease with heart failure; D64.9 Anemia, unspecified; I25.10 Atherosclerotic heart disease of native coronary artery without angina pectoris; E11.51 Type 2 diabetes mellitus with diabetic peripheral angiopathy without gangrene; I50.9 Heart failure, unspecified; N40.0 Benign prostatic hyperplasia without lower urinary tract symptoms; E78.5 Hyperlipidemia, unspecified; Z88.1 Allergy status to other antibiotic agents; Z88.8 Allergy status to other drugs, medicaments and biological substances; Z88.0 Allergy status to penicillin; Z88.6 Allergy status to analgesic agent; Z68.32 Body mass index [BMI] 32.0-32.9, adult
CPT/HCPCS: J1630; J2060; J2270; J3490